=== PATIENT | male | born 1970 | race Caucasian/White ===

== ENCOUNTER → 2019-09-23 16:30 | Outpatient (BNVA) | payer OTHER, SELFPAY | PROVIDERS: Visit Provider Family Medicine | DX: Z11.59 Encounter for screening for other viral diseases (principal) | CPT/HCPCS: 87635 ==

== ENCOUNTER → 2021-11-21 15:13 | Outpatient (BNVA) | payer BC, MEDICAID, SELFPAY | PROVIDERS: Visit Provider Family Medicine | DX: Z76.89 Persons encountering health services in other specified circumstances (principal); Z11.4 Encounter for screening for human immunodeficiency virus [HIV]; Z11.59 Encounter for screening for other viral diseases; Z91.89 Other specified personal risk factors, not elsewhere classified; M25.50 Pain in unspecified joint; R63.4 Abnormal weight loss | CPT/HCPCS: 80053; 80061; 84153; 84443; 85025; 85651; 86140; 86803; 87340; 87806 ==

== ENCOUNTER → 2021-11-22 13:50 | Outpatient (BNVA) | payer BC, MEDICAID, SELFPAY | PROVIDERS: Visit Provider Family Medicine | DX: Z76.89 Persons encountering health services in other specified circumstances (principal); Z11.4 Encounter for screening for human immunodeficiency virus [HIV]; Z11.59 Encounter for screening for other viral diseases; Z91.89 Other specified personal risk factors, not elsewhere classified; M25.50 Pain in unspecified joint; R63.4 Abnormal weight loss | CPT/HCPCS: 87522 ==

== ENCOUNTER → 2021-12-13 09:06 | Outpatient (BNVA) | payer BC, MEDICAID, SELFPAY | PROVIDERS: Visit Provider Family Medicine | DX: B19.20 Unspecified viral hepatitis C without hepatic coma (principal); E11.65 Type 2 diabetes mellitus with hyperglycemia | CPT/HCPCS: 83036; 85610; 86704; 86706; 87340; 87902 ==

== ENCOUNTER 2022-03-08 06:17 | Outpatient (CLI) | payer BC, MEDICAID, SELFPAY ==
--- NOTE | 2022-03-08 06:30 | US_ITS ---
WS: [id number] RIGHT UPPER QUADRANT ULTRASOUND HISTORY: Hepatitis C infection COMPARISON: None available. Liver: 15.1 cm in length. Normal size liver with mild diffuse coarse echotexture. Surface of the live r is very slightly nodular and irregular. No mass. No bile duct dilatation. Portal Vein: Normal hepatopetal flow with monophasic waveform. Gallbladder: Mildly contracted gallbladder with wall thickening measuring just over 3 mm. No cholelit hiasis or pericholecystic fluid. CBD: 0.3 cm Pancreas: Normal. Right kidney: 10.9 cm in length. Normal size and echogenicity. No hydronephrosis or mass. Aorta and IVC: Unremarkable abdominal aorta and IVC. No ascites. US/US abdomen limited [id number] IMPRESSION: 1. Hepatic changes consistent with cirrhosis or hepatocellular disease. 2. Diffuse gallbladder wall thickening may be related to hepatocellular diseas e or partial contraction. No stones or acute cholecystitis identified. 3. No bile duct dilatation.
== END 2022-03-08 06:18 | disposition home or self-care (01) ==
LOC: RAD 06:18
PROVIDERS: PCP Family Medicine; Visit Provider Family Medicine
DX: B19.20 Unspecified viral hepatitis C without hepatic coma (principal)
CPT/HCPCS: 76705

== ENCOUNTER 2022-04-03 15:56 | Emergency (ER) | payer BC, MEDICAID, SELFPAY ==
[2022-04-03 16:22] VITALS: BP 113/79; PULSE 117; RESP 20; TEMP 37.3; O2SAT 97; BMI 21.9
[2022-04-03 17:42] LABS: Basophils # 0.1 10^3/uL (0.0-0.1); Basophils % 0.6 %; Eosinophils # 0.1 10^3/uL (0.0-0.8); Eosinophils % 0.7 %; Hematocrit 47.5 % (42.0-52.0); Hemoglobin 16.8 g/dL (11.7-16.6); Lymphocytes # 3.1 10^3/uL (0.8-4.8); Lymphocytes % 17.1 %; Mean Corpuscular HGB Conc 35.4 g/dL (30.0-36.0); Mean Corpuscular Hemoglobin 30.3 pg (28.0-34.0); Mean Corpuscular Volume 85.6 fl (80-94); Mean Platelet Volume 13.1 fL (7.4-10.4); Monocytes # 1.5 10^3/uL (0.2-0.9); Monocytes % 8.3 %; Neutrophils # 13.18 10^3/uL (1.8-7.7); Neutrophils % 72.5 %; Nucleated Red Blood Cells % 0 %; Platelet Count 201 10^3/cmm (130-400); Red Blood Count 5.55 10^6/uL (4.1-5.3); Red Cell Distribution Width 11.5 % (12.1-15.1); White Blood Count 18.2 10^3/uL (4.0-10.0)
[2022-04-03 17:43] LABS: Erythrocyte Sedimentation Rate 5 mm/hr (0-10)
[2022-04-03] MEDS: sodium chloride 0.9% 500 ML IV (17:44)
[2022-04-03 17:56] LABS: Alanine Aminotransferase 76 U/L (0-41); Albumin Level 4.1 g/dL (3.5-5.2); Alkaline Phosphatase 149 U/L (40-130); Anion Gap 15.4 (5-19); Aspartate Amino Transferase 30 U/L (0-40); Blood Urea Nitrogen 11 mg/dL (6-20); Calcium 10.2 mg/dL (8.5-10.5); Carbon Dioxide 26 mmol/L (22-29); Chloride 89 mmol/L (98-107); Creatinine Clr Calc Pharmacy 108.0854; Globulin 3.6 g/dL (1.3-4.6); Glomerular Filtration Rate 101.1 mL/min (90-130); Glucose 436 mg/dL (65-115); Osmolality Calculated 280 mOsm/kg (285-295); Potassium 4.4 mmol/L (3.5-5.1); Sodium 126 mmol/L (136-145); Total Bilirubin 0.5 mg/dL (0.15-1.2); Total Protein 7.7 g/dL (6.6-8.7)
[2022-04-03 17:57] LABS: Lactate (Lactic Acid level) 1.7 mmol/L (0.5-2.2)
--- NOTE | 2022-04-03 18:06 | ED_ITS ---
HPI - Male Genitourinary General: Chief complaint: Urogenital-Male Stated complaint: urogenital Time Seen by Provider: 04/03/22 16:50 Source: patient Mode of arrival: ambulatory Limitations: no limitations History of Present Illness: This patient was sent to the emergency department because there was concern about possible infection in his inguinal region. He states that he has had what he thought was an ingrown hair in the left inguinal crease and subsequently has had a lump that appeared in his groin and he is concerned about it. There initially was concerned whether he had fevers associated with this but he states that his temperatures never been over 99.6. He states he was sick several days ago with some abdominal cramping nausea vomiting and diarrhea but that is now improved. He states he ate a normal breakfast and lunch today without any difficulty. He denies any sore throat, cough or other potential sources of illness. No one else lives with him. He states he has been able to urinate normally. Associated symptoms: Reports nausea; Deny dysuria or vomiting Review of Systems Const: Denies: fever(s) or chills ENMT: Denies: throat pain, nasal discharge or nasal congestion Card: Denies: chest pain Resp: Denies: dyspnea, productive cough or non-productive cough GI: Reports: nausea; Denies: abdominal pain, vomiting or diarrhea : Reports: genital lesions; Denies: flank pain, difficulty urinating, dysuria, urinary frequency, penile discharge, testicular pain, testicular mass or scrotal swelling Musc: Denies: extremity pain or extremity swelling Skin/Breast: Reports: sores; Denies: rash Neuro: Denies: headache(s), numbness in extremities or weakness in extremities PFS ED 2 PFSH: Medical History Acute pharyngitis Social History Smoking and tobacco status: current every day smoker cigarettes Alcohol intake: never Lives independently: Yes Physical Exam Narrative: EXAM NARRATIVE: He appears to be alert in no acute distress. His speech is goal-directed and fluent. Const: COMMON NORMALS: no acute distress, average body habitus and patient oriented x3 GENERAL APPEARANCE: cooperative and comfortable ORIENTATION/CONSCIOUSNESS: Yes awake HENMT: COMMON NORMALS: normocephalic, Normal nasal mucous membranes and turbinates present and moist oral mucous membranes HEAD & SCALP: normocephalic NOSE: Normal nasal mucous membranes and turbinates present Eye: COMMON NORMALS: Equal, round and reactive pupils present, conjunctivae normal and no scleral icterus CONJUNCTIVA: Yes conjunctivae normal PUPIL: Yes Equal, round and reactive pupils present Neck/C-Spine: COMMON NORMALS: full ROM and no lymphadenopathy Chest: COMMONS NORMALS: normal inspection of the chest Resp: COMMON NORMALS: normal respiratory effort, No retractions, No use of accessory muscles and clear to auscultation bilaterally AUSCULTATION: clear to auscultation bilaterally Cardio: COMMON NORMALS: regular rate, regular rhythm, No murmurs present (Cardio) and Peripheral pulses 2+ throughout RATE: regular rate RHYTHM: regular rhythm PERIPHERAL PULSES: Peripheral pulses 2+ throughout GI: COMMON NORMALS: Normal to inspection, nondistended, normoactive bowel sounds present, Soft to palpation, non-tender and No hepatosplenomegaly present PALPATION: Yes Soft to palpation and Yes No hepatosplenomegaly present : COMMON NORMALS: Yes No hernias present PENIS: normal penis and circumcised SCROTUM: Yes testes descended bilaterally, Yes Cremasteric reflex present and No inguinal hernia TESTES: Yes testicular lie normal, No testicular tenderness and Yes epididymides normal OTHER: He has a swollen papule measuring approximately 5 mm x 5 mm in the skin crease inferior to his scrotum. There is no surrounding erythema. Appears to be area of folliculitis. There is no palpable fluctuance. He has proximal inguinal nodes that are slightly enlarged approximately grape size which are freely mobile and slightly tender. There is no erythema in either area. Back/Pelvis: COMMON NORMALS: thoracic and lumbar spine normal to inspection, no thoracic nor lumbar tenderness and thoraco-lumbar ROM normal Extremity: COMMON NORMALS: normal to inspection, full ROM and capillary refill normal Neuro: COMMON NORMALS: patient oriented x3, moves all extremities, no focal motor deficits and no sensory deficits noted Psych: COMMON NORMALS: mental status grossly normal Skin: COMMON NORMALS: turgor normal, no petechiae and no mottling GENERAL SKIN EXAM: turgor normal Course Reevaluation(s): Reevaluation #1: Patient remained clinically stable. Has received his antibiotics and reassessment with any new or focal findings. He is comfortable, hungry, thirsty etc. Time: 19:29 Vital Signs: Vital signs: Vital Signs Temperature 99.1 F 04/03/22 16:22 Pulse Rate 117 H 04/03/22 16:22 Respiratory Rate 20 H 04/03/22 16:22 Blood Pressure 113/79 04/03/22 16:22 Pulse Oximetry 97 04/03/22 16:22 Oxygen Delivery Me thod 04/03/22 16:22 MDM - Male Medical Decision Making This patient was referred to the emergency department from his primary care office for turns about tenderness and a lump in his left groin. This had been preceded by what in retrospect is seemingly an unrelated illness where he had some episodes of vomiting and diarrhea that has resolved. He subsequently has eaten well in the past 24 hours prior to arrival to the emergency department. My clinical examination today was very reassuring. He appeared to be quite comfortable and healthy-appearing. He did not have a elevation in temperature in the emergency department. He initially had borderline tachycardia but this resolved with the continued observation in the emergency department. His remainder of his clinical examination was only remarkable for an area of what appears to be consistent with a folliculitis in his left inguinal crease with surrounding and associated lymphadenopathy. He Apsley had no abdominal tende rness, peritoneal signs or other concerning findings on his abdominal examination. Laboratories were obtained which revealed a isolated leukocytosis without elevation in sed rate, CRP or other inflammatory markers. Patient's also had a normal lactate. No clinical evidence at this time to suggest a significant association between his preceding GI symptoms and his current presentation. I think he has findings which suggest a mild folliculitis for which we used we will start him on a first generation cephalosporin and instructed him on expected course. He voiced understanding of our discussion is stable at this time to be discharged with close follow-up and return precautions reviewed and acknowledged by the patient. Lab Data I reviewed the patient's lab results. 04/03/22 16:47 04/03/22 16:47 Laboratory Results WBC 18.2 10^3/uL (4.0-10.0) H 04/03/22 16:47 RBC 5.55 10^6/uL (4.1-5.3) H 04/03/22 16:47 Hgb 16.8 g/dL (11.7-16.6) H 04/03/22 16:47 Hct 47.5 % (42.0-52.0) 04/03/22 16:47 MCV 85.6 fl (80-94) 04/03/22 16:47 MCH 30.3 pg (28.0-34.0) 04/03/22 16:47 MCHC 35.4 g/dL (30.0-36.0) 04/03/22 16:47 RDW 11.5 % (12.1-15.1) L 04/03/22 16:47 Plt Count 201 10^3/cmm (130-400) 04/03/22 16:47 MPV 13.1 fL (7.4-10.4) H 04/03/22 16:47 Neut % (Auto) 72.5 % 04/03/22 16:47 Lymph % (Auto) 17.1 % 04/03/22 16:47 [place] % (Auto) 8.3 % 04/03/22 16:47 Eos % (Auto) 0.7 % 04/03/22 16:47 Baso % (Auto) 0.6 % 04/03/22 16:47 Neut # (Auto) 13.18 10^3/uL (1.8-7.7) H 04/03/22 16:47 Lymph # (Auto) 3.1 10^3/uL (0.8-4.8) 04/03/22 16:47 [place] # (Auto) 1.5 10^3/uL (0.2-0.9) H 04/03/22 16:47 Eos # (Auto) 0.1 10^3/uL (0.0-0.8) 04/03/22 16:47 Baso # (Auto) 0.1 10^3/uL (0.0-0.1) 04/03/22 16:47 Nucleated RBC % (auto) 0 % 04/03/22 16:47 Nucleated RBCs # 0.0 /100WBC 04/03/22 16:47 ESR 5 mm/hr (0-10) 04/03/22 16:47 Sodium 126 mmol/L (136-145) L 04/03/22 16:47 Potassium 4.4 mmol/L (3.5-5.1) 04/03/22 16:47 Chloride 89 mmol/L (98-107) L 04/03/22 16:47 Carbon Dioxide 26 mmol/L (22-29) 04/03/22 16:47 Anion Gap 15.4 (5-19) 04/03/22 16:47 BUN 11 mg/dL (6-20) 04/03/22 16:47 Creatinine 0.8 mg/dL (0.7-1.2) 04/03/22 16:47 GFR Calculation 101.1 mL/min (90-130) 04/03/22 16:47 Glucose 436 mg/dL (65-115) H 04/03/22 16:47 Calculated Osmolality 280 mOsm/kg (285-295) L 04/03/22 16:47 Lactate 1.7 mmol/L (0.5-2.2) 04/03/22 16:47 Calcium 10.2 mg/dL (8.5-10.5) 04/03/22 16:47 Total Bilirubin 0.5 mg/dL (0.15-1.2) 04/03/22 16:47 AST 30 U/L (0-40) 04/03/22 16:47 ALT 76 U/L (0-41) H 04/03/22 16:47 Alkaline Phosphatase 149 U/L (40-130) H 04/03/22 16:47 C-Reactive Protein 3.0 mg/L (0.0-4.9) 04/03/22 16:47 Total Protein 7.7 g/dL (6.6-8.7) 04/03/22 16:47 Albumin 4.1 g/dL (3.5-5.2) 04/03/22 16:47 Globulin 3.6 g/dL (1.3-4.6) 04/03/22 16:47 Discharge Plan Discharge Patient Disposition: Home Clinical Impression: Folliculitis, Inguinal adenopathy Condition: Stable Prescriptions: New cephalexin 500 mg capsule 500 mg PO Q6H 7 Days Qty: 28 0RF No Action (DME) diabetic supplies, miscellan. Misc See Rx Instructions miscellaneous .MEDSUPPLY Qty: 100 2RF Rx Instructions: Please issue Glucometer, testing supplies, pen needles for insulin pen and any other diabetic supplies. insulin glargine 100 unit/mL (3 mL) insulin pen 28 unit SUBCUT DAILY Qty: 15 4RF pantoprazole [Protonix] 40 mg tablet,delayed release (DR/EC) 40 mg PO DAILY Qty: 30 0RF ondansetron HCl 4 mg tablet 4 mg PO Q8H PRN (Reason: nausea and vomiting) Qty: 30 0RF Discharge Orders: Discharge ED (Routine); Ordered 04/03/22 Ordered By: Acosta Michelle Referrals: Harman Marcus, [Primary Care Provider] - Discharge Diet: Usual diet Discharge Activity: Increase activity as tolerated Patient Instructions: Opioid Safety, Pain Management Activity Restrictions/Additional Instructions: As discussed while you were in the emergency department we did not find any evidence today of a serious medical condition or illness. You do have an inflammation of a hair follicle in your left groin with associated lymph node tenderness and swelling. For that condition we have prescribed antibiotics as we discussed. You should take these medications as prescribed. If you develop increasing pain, fevers, or any other concerning symptoms return to this or the nearest emergency department immediately Coding Level of Care Code ED Electrical Sign Wirer for Mimi Fwd Exam Expanded Problem Focused
[2022-04-03] MEDS: ceFAZolin 1,000 MG in sodium chloride 0.9% (plus) 50 ML 100 MG IV (19:09)
[2022-04-03 19:46] VITALS: BP 131/91; PULSE 108; RESP 14; O2SAT 97
== END 2022-04-03 19:48 | disposition home or self-care (01) ==
PROVIDERS: Emergency Provider Emergency Medicine; PCP Family Medicine
DX: L73.9 Follicular disorder, unspecified (principal); R59.0 Localized enlarged lymph nodes; Z79.4 Long term (current) use of insulin; F17.210 Nicotine dependence, cigarettes, uncomplicated
CPT/HCPCS: 80053; 83605; 85025; 85651; 86140; 96365; 99284; J0690; J7040

== ENCOUNTER 2022-05-01 09:08 | Emergency (ER) | payer BC, MEDICAID, SELFPAY ==
[2022-05-01 09:17] VITALS: BP 122/90; PULSE 124; RESP 18; TEMP 36.6; O2SAT 99; BMI 21.5
--- NOTE | 2022-05-01 09:36 | XRR_ITS ---
PROCEDURE INFORMATION: Exam: XR Abdomen Exam date and time: 05/01/2022 10:05 AM Age: 51 years old Clinical indication: Constipation; Abdominal pain; Generalized; Additional info: Abdominal pain and constipation TECHNIQUE: Imaging protocol: Radiologic exam of the abdomen. Views: Frontal supine view of the abdomen. 1 View. COMPARISON: US abdomen limited [id number] 03/08/2022 6:29 AM FINDINGS: Gastrointestinal tract: There is stool distention of the ascending colon and proximal descending colon. The distal descending colon contains stool and is nondistended. The rectum is nondistended. No visibly dilated small bowel. Intraperitoneal space: No intraperitoneal free air. Bones/joints: There is mild degenerative disease in the lower lumbar spine. XR/XR KUB [id number] IMPRESSION: Intermittent stool distention of the proximal colon consistent with clinical findings of constipation.
[2022-05-01 10:00] LABS: Basophils # 0.1 10^3/uL (0.0-0.1); Basophils % 0.4 %; Hematocrit 49.1 % (42.0-52.0); Hemoglobin 17.9 g/dL (11.7-16.6); Lymphocytes # 2.2 10^3/uL (0.8-4.8); Lymphocytes % 10.3 %; Mean Corpuscular HGB Conc 36.5 g/dL (30.0-36.0); Mean Corpuscular Hemoglobin 30.5 pg (28.0-34.0); Mean Corpuscular Volume 83.6 fl (80-94); Mean Platelet Volume 11.1 fL (7.4-10.4); Monocytes # 2.2 10^3/uL (0.2-0.9); Neutrophils # 17.11 10^3/uL (1.8-7.7); Neutrophils % 78.7 %; Nucleated Red Blood Cells % 0 %; Platelet Count 237 10^3/cmm (130-400); Red Blood Count 5.87 10^6/uL (4.1-5.3); Red Cell Distribution Width 11.7 % (12.1-15.1); White Blood Count 21.7 10^3/uL (4.0-10.0)
--- NOTE | 2022-05-01 10:05 | CT_ITS ---
WS: [id number] CT ABDOMEN AND PELVIS WITH CONTRAST HISTORY: abdominal pain, vomiting, leukocytosis TECHNIQUE: Imaging performed of the abdomen and pelvis with IV contrast. Single phase imaging of the abdomen. Coronal and sagittal reformats are submitted. All CT scans at [facility] use at [address] one of these dose optimization techniques: automated exposure control; mA and/or kV adjustment per patient size (includes targeted exams where dose is matched to clinical indication); or iterative re construction. IV CONTRAST: Omnipaque 350; 100 mL IV. Oral contrast: No DLP: 439.27 mGy.cm COMPARISON: None available. Lower thorax: Lung bases are clear. Heart is normal size. Small hiatal hernia. Distal esophagus is fl uid-filled dilated. There is wall thickening and edema within the esophagus. No mass is identified. Liver/biliary system: Normal size with no intrahepatic dilatation. Gallbladder: Normal. No gallstones or wall thickening. No pericholecystic fluid. Pancreas: Normal size pancreas and pancreatic duct. No adjacent inflammation. Spleen: Normal size spleen. No mass or infarct. Adrenal glands: Normal. Right kidney: Normal. Left kidney: Normal. Aorta: Mild atherosclerosis with no aneurysm. Lymphadenopathy: None. Free fluid: None. GI tract: Stomach is markedly distended with fluid, air and a small amount of debris. Fluid extends i nto the distal esophagus. No small bowel obstruction. Moderate diffuse constipation. Normal appendix. Abdominal wall: Unremarkable abdominal wall. No hernia. Pelvis: Markedly distended urinary bladder. No free fluid or adenopathy within the pelvis. Bones: L4 anterolisthesis by 6 mm. Bilateral facet joint arthritis. Pars defect RIGHT L5 pedicle. CT/CT abdomen pelvis w con* [id number] IMPRESSION: 1. Marked thickening and inflammatory changes involving the distal esophagus w ith a large amount of intraluminal fluid. Fluid may be from gastroesophageal re flux. The distal esophageal sphincter appears patent. Inflammatory changes sugg esting esophagitis. Upper endoscopy may be necessary to further evaluate the es ophagus. 2. Marked fluid distention of the stomach. No outlet obstruction is apparent b y CT. 3. Moderate diffuse constipation. 4. No ascites or adenopathy.
[2022-05-01] MEDS: ondansetron 4 MG Tablet PO (10:13)
[2022-05-01 10:18] LABS: Alanine Aminotransferase 91 U/L (0-41); Albumin Level 4.6 g/dL (3.5-5.2); Alkaline Phosphatase 171 U/L (40-130); Aspartate Amino Transferase 44 U/L (0-40); Blood Urea Nitrogen 20 mg/dL (6-20); Calcium 10.1 mg/dL (8.5-10.5); Carbon Dioxide 30 mmol/L (22-29); Chloride 79 mmol/L (98-107); Glomerular Filtration Rate 88.3 mL/min (90-130); Lipase 13 U/L (13-60); Osmolality Calculated 293 mOsm/kg (285-295); Sodium 126 mmol/L (136-145); Total Bilirubin 1.4 mg/dL (0.15-1.2); Total Protein 7.6 g/dL (6.6-8.7)
[2022-05-01 10:22] LABS: Glucose 616 mg/dL (65-115)
--- NOTE | 2022-05-01 10:25 | PC.NURSE ---
NOTIFIED PROVIDER WILCOX OF CRITICAL BLOOD SUGAR OF 616 VERBALIZED UNDERSTANDING NO FURTHER ORDERS.
--- NOTE | 2022-05-01 10:27 | XRR_ITS ---
PROCEDURE INFORMATION: Exam: XR Chest Exam date and time: 05/01/2022 10:39 AM Age: 51 years old Clinical indication: Condition or disease; Other: Leukocytosis TECHNIQUE: Imaging protocol: Radiologic exam of the chest. Views: 2 views. COMPARISON: CR XR KUB [id number] 05/01/2022 10:05 AM FINDINGS: Lungs: Unremarkable. No consolidation. Pleural spaces: Unremarkable. No pleural effusion. No pneumothorax. Heart/Mediastinum: Unremarkable. No cardiomegaly. Bones/joints: Unremarkable. XR/XR chest 2V* [id number] IMPRESSION: No acute findings.
--- NOTE | 2022-05-01 10:40 | ECG_ITS ---
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 Measurements Intervals [place] Rate: 118 P: 62 ME: 134 QRS: 70 QRSD: 81 T: 69 QT: 304 QTc: 426 Interpretive Statements SINUS TACHYCARDIA NONSPECIFIC ST ELEVATION [0.05+ mV ST ELEVATION] ABNORMAL RHYTHM ECG No previous ECG available for comparison Electronically Signed On 05-01-2022 11:42:52 [employer] by Alonso Tran M.D. [id number]
--- NOTE | 2022-05-01 10:45 | W.ED.ABDPA2 ---
Documented by User: ANGIE Larry 05/03/22 23:30 HPI - Abdominal Pain General: Chief Complaint: Abdominal Pain Stated Complaint: constipation,vomitting Time Seen by Provider: 05/01/22 09:34 History of Present Illness: Patient is in for several days of vomiting and constipation. He reports that his last bowel movement was 4 days ago. He reports that he is vomiting all of the time in the last few days. He states that this has been a cycle happening for several months now. He reports that he was here about a month ago for knot in his left side groin and they put him on medication. He still has some knots. 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 He reports he thinks that was cancer happened some 10 years ago. He reports that he has been undergoing treatment for hepatitis C. He offers that he is diabetic takes mealtime insulin and also 24-hour insulin although he has not had that in several days because of the vomiting. He reports he has been unable to eat at all. He denies fever but has had off-and-on chills. He reports the pain in his abdomen is left upper quadrant abdomen. Associated Symptoms: Reports chills, constipation, hematemesis, nausea and vomiting; Denies dysuria and fever(s) Review of Systems Const: Reports: chills, change in appetite and fatigue; Denies: fever(s) Card: Denies: chest pain or palpitations Resp: Denies: dyspnea, productive cough or non-productive cough GI: Reports: abdominal pain, nausea, vomiting, hematemesis and constipation : Reports: other (Painful lumps left side inguinal); Denies: flank pain, difficulty urinating or dysuria PFSH ED PFSH: Medical History Acute pharyngitis Social History Smoking and tobacco status: current every day smoker cigarettes Alcohol intake: never Lives independently: Yes Physical Exam Const: COMMON NORMALS: patient oriented x3 and alert OTHER: Anxious. Poor manager of medical. Neck/C-Spine: COMMON NORMALS: full ROM, no lymphadenopathy, supple and no JVD Resp: COMMON NORMALS: normal respiratory effort, No use of accessory muscles and clear to auscultation bilaterally AUSCULTATION: clear to auscultation bilaterally Cardio: COMMON NORMALS: no JVD, regular rhythm, S1 normal heart sound present and S2 normal heart sound present RATE: tachycardic RHYTHM: regular rhythm HEART SOUNDS: S1 normal heart sound present and S2 normal heart sound present GI: COMMON NORMALS: Soft to palpation INSPECTION: Yes normal to inspection AUSCULTATION: Yes normoactive bowel sounds PALPATION: Yes Soft to palpation, Yes Tenderness to palpation present (GI) Details: RLQ and LUQ and Yes Guarding due to palpation present (GI) in the LUQ : OTHER: There is subtle left inguinal lymphadenopathy. Skin is intact no obvious lesions or abscesses appreciated. Neuro: COMMON NORMALS: patient oriented x3 SENSORIUM/ORIENTATION: Yes alert Psych: MOOD & AFFECT: Yes anxious Course ED course: 1045?patient's blood sugar was called is critical from lab for results of 616. Added on EKG, troponin, ketones, ABG. I discussed patient's lab results and EKG with Dr. Garcia. Dr. Garcia recommends 2 L IV fluid then treat with 10 units IV insulin. May repeat 2 L IV fluid after. 1235?fluids completed. Will administer 10 units IV insulin x1 dose. Repeat blood glucose is 506. I discussed this with Dr. Garcia. Ketones serum were negative. We will recheck blood glucose in 1 hour. Plan for discharge once patient's blood glucose is below 300 1545?patient starting to vomit again after taking oral liquids. Another liter of IV fluids ordered. Benadryl to help with nausea. We will continue to monitor Vital Signs: Vital signs: Vital Signs Temperature 97.9 F 05/01/22 09:17 Pulse Rate 98 05/01/22 18:43 Respiratory Rate 18 05/01/22 11:11 Blood Pressure 136/82 05/01/22 18:43 Pulse Oximetry 98 05/01/22 18:43 Oxygen Delivery Me thod 05/01/22 15:40 MDM - Abdominal Pain Medical Decision Making The patient is in for general nausea, vomiting and ill feeling. He is an uncontrolled diabetic patient who is also receiving treatment for hepatitis C. The patient was recently seen to for what he reports was tumors in his groin. Looking back at the ER record it appears that he was seen and diagnosed with folliculitis of his inguinal region on the left side. It appears there was lymphadenopathy appreciated on that exam. Patient states now for 3 days he has been having vomiting and it worsened significantly last night. He denies fever but has had some chills. He has not been taking his insulin because he has not been able to keep much food down. Labs reveal significant dehydration and hyperglycemia. Anion gap was 21 negative serum ketones. UA dip and chest x-ray negative for signs of infection. CT abdomen and pelvis shows thickening and inflammatory changes of the distal esophagus suggestive of esophagitis. Patient was rehydrated with IV fluids and 10 units of insulin was administered after the fluids as patient's blood sugar was 616. An hour after insulin was administered the patient's blood sugar was down to 256. Patient's white blood cell count is 21.7 which is up from previous ER visit at 18. This is likely related to severity of dehydration. I do not see any evidence of acute bacterial infection at this time. I reviewed labs, case, EKG with Dr. Garcia. He recommends patient be discharged home with short-term follow-up with primary care provider. Return to the ER as needed for new or worsening symptoms. The plan was originally to do this however patient is still vomiting and unable to hold p.o. liquids down. Continued with IV hydration and further antiemetics. Care was transitioned to Ariana Post PA-C as my shift is ending. Transfer of patient care from [facility], [facility] to myself, Ariana Post PA-C. Patient has been treated with Benadryl and Zofran for his nausea. Prescription for continued treatment with Zofran provided. Patient also indicates concerns for constipation as he has had decreased stool output over the last 3 days. MiraLAX also provided. All the patient's lab work was reviewed by Dr. Garcia who recommended discharge for this patient at this time. Patient was given return precautions for any change or worsening in condition. Lab Data 05/01/22 09:49 05/01/22 09:49 Labs/Radiology: Radiology Impressions KUB X-Ray 05/01/22 09:36 IMPRESSION: Intermittent stool distention of the proximal colon consistent with clinical findings of constipation. Abdomen/Pelvis CT 05/01/22 10:05 IMPRESSION: 1. Marked thickening and inflammatory changes involving the distal esophagus with a large amount of intraluminal fluid. Fluid may be from gastroesophageal reflux. The distal esophageal sphincter appears patent. Inflammatory changes suggesting esophagitis. Upper endoscopy may be necessary to further evaluate the esophagus. 2. Marked fluid distention of the stomach. No outlet obstruction is apparent by CT. 3. Moderate diffuse constipation. 4. No ascites or adenopathy. Chest X-Ray 05/01/22 10:27 IMPRESSION: No acute findings. Laboratory Results WBC 21.7 10^3/uL (4.0-10.0) H 05/01/22 09:49 RBC 5.87 10^6/uL (4.1-5.3) H 05/01/22 09:49 Hgb 17.9 g/dL (11.7-16.6) H 05/01/22 09:49 Hct 49.1 % (42.0-52.0) 05/01/22 09:49 MCV 83.6 fl (80-94) 05/01/22 09:49 MCH 30.5 pg (28.0-34.0) 05/01/22 09:49 MCHC 36.5 g/dL (30.0-36.0) H 05/01/22 09:49 RDW 11.7 % (12.1-15.1) L 05/01/22 09:49 Plt Count 237 10^3/cmm (130-400) 05/01/22 09:49 MPV 11.1 fL (7.4-10.4) H 05/01/22 09:49 Neut % (Auto) 78.7 % 05/01/22 09:49 Lymph % (Auto) 10.3 % 05/01/22 09:49 [place] % (Auto) 10.0 % 05/01/22 09:49 Eos % (Auto) 0.0 % 05/01/22 09:49 Baso % (Auto) 0.4 % 05/01/22 09:49 Neut # (Auto) 17.11 10^3/uL (1.8-7.7) H 05/01/22 09:49 Lymph # (Auto) 2.2 10^3/uL (0.8-4.8) 05/01/22 09:49 [place] # (Auto) 2.2 10^3/uL (0.2-0.9) H 05/01/22 09:49 Eos # (Auto) 0.0 10^3/uL (0.0-0.8) 05/01/22 09:49 Baso # (Auto) 0.1 10^3/uL (0.0-0.1) 05/01/22 09:49 Nucleated RBC % (auto) 0 % 05/01/22 09:49 Nucleated RBCs # 0.0 /100WBC 05/01/22 09:49 Specimen Type Arterial 05/01/22 11:15 Sample Site Radial, left 05/01/22 11:15 ABG pH 7.53 (7.35-7.45) H 05/01/22 11:15 ABG pCO2 37.5 mmHg (35-45) 05/01/22 11:15 ABG pO2 83.9 mmHg (80.0-100.0) 05/01/22 11:15 ABG HCO3 31.5 mmol/L (22-26) H 05/01/22 11:15 ABG O2 Saturation 97.8 05/01/22 11:15 ABG Base Excess 8.4 mmol/L (-2.0-2.0) H 05/01/22 11:15 [place] Test Pos 05/01/22 11:15 A-a O2 Gradient 2.2 mmHg (5-10) L 05/01/22 11:15 Hematocrit 49.6 % (42-52) 05/01/22 11:15 Hgb O2 Saturation 94.5 % (95-100) L 05/01/22 11:15 Carboxyhemoglobin 3.2 %THgb (0.4-20.1) 05/01/22 11:15 Methemoglobin 0.2 % (0.4-1.5) L 05/01/22 11:15 Total Hemoglobin 16.2 g/dL (14-18) 05/01/22 11:15 Sodium 125.0 mmol/L (131-143) L 05/01/22 11:15 Potassium 3.1 mmol/L (3.5-5.0) L 05/01/22 11:15 Glucose 549.0 mg/dL (70-115) H 05/01/22 11:15 Ionized Calcium 1.1 mmol/L (1.1-1.4) 05/01/22 11:15 O2 Delivery Device None 05/01/22 11:15 Technical Project Manager ID [email or web address] 05/01/22 11:15 Sodium 130 mmol/L (136-145) L 05/01/22 16:06 Potassium 3.4 mmol/L (3.5-5.1) L 05/01/22 16:06 Chloride 91 mmol/L (98-107) L 05/01/22 16:06 Carbon Dioxide 26 mmol/L (22-29) 05/01/22 16:06 Anion Gap 16.4 (5-19) 05/01/22 16:06 BUN 18 mg/dL (6-20) 05/01/22 16:06 Creatinine 0.6 mg/dL (0.7-1.2) L 05/01/22 16:06 GFR Calculation 140.9 mL/min (90-130) H 05/01/22 16:06 Glucose 323 mg/dL (65-115) H 05/01/22 16:06 POC Glucose 285 mg/dL (70-110) H 05/01/22 18:01 Calculated Osmolality 284 mOsm/kg (285-295) L 05/01/22 16:06 Lactic Acid 3.6 mmol/L (0.5-2.2) H 05/01/22 09:49 Lactic Acid (Sepsis) 4.1 mmol/L (0.5-2.2) H* 05/01/22 13:41 Calcium 9.0 mg/dL (8.5-10.5) 05/01/22 16:06 Phosphorus 5.1 mg/dL (2.5-4.5) H 05/01/22 09:49 Magnesium 2.3 mg/dL (1.7-2.3) 05/01/22 09:49 Total Bilirubin 1.2 mg/dL (0.15-1.2) 05/01/22 16:06 AST 31 U/L (0-40) 05/01/22 16:06 ALT 63 U/L (0-41) H 05/01/22 16:06 Alkaline Phosphatase 140 U/L (40-130) H 05/01/22 16:06 Troponin T Baseline 15 ng/L (0-15) 05/01/22 13:41 Troponin T 120 Minute 15.02 ng/L (0-15) H 05/01/22 15:50 Delta Troponin T 0.02 ABS# (0-10) 05/01/22 15:50 Total Protein 6.1 g/dL (6.6-8.7) L 05/01/22 16:06 Albumin 3.6 g/dL (3.5-5.2) 05/01/22 16:06 Globulin 2.5 g/dL (1.3-4.6) 05/01/22 16:06 Lipase 13 U/L (13-60) 05/01/22 09:49 Urine Color Dark yellow (Yellow) 05/01/22 14:46 Urine Appearance Clear (CLEAR) 05/01/22 14:46 Urine pH 6.5 (5-7) 05/01/22 14:46 Ur Specific [place] 1.010 (1.005-1.030) 05/01/22 14:46 Urine Protein Neg (Negative) 05/01/22 14:46 Urine Glucose (UA) 4+ (Normal) H 05/01/22 14:46 Urine Ketones 1+ (Negative) H 05/01/22 14:46 Urine Blood Neg (Negative) 05/01/22 14:46 Urine Nitrate Negative (Negative) 05/01/22 14:46 Urine Bilirubin Neg (Negative) 05/01/22 14:46 Urine Urobilinogen Norm mg/dL (Negative) 05/01/22 14:46 Ur Leukocyte Esterase Negative (Negative) 05/01/22 14:46 Serum Ketones Negative (Negative) 05/01/22 09:49 Discharge Plan Discharge Patient Disposition: Home Clinical Impression: Diabetes mellitus type 2, uncontrolled, with complications, Vomiting, Elevated blood sugar level Condition: Stable Prescriptions: New ondansetron 4 mg tablet,disintegrating 4 mg PO Q8H 5 Days Qty: 15 0RF Miralax 17 gram/dose powder 17 g PO DAILY Qty: 238 0RF No Action (DME) diabetic supplies, miscellan. Misc See Rx Instructions miscellaneous .MEDSUPPLY Qty: 100 2RF Rx Instructions: Please issue Glucometer, testing supplies, pen needles for insulin pen and any other diabetic supplies. pantoprazole [Protonix] 40 mg tablet,delayed release (DR/EC) 40 mg PO DAILY Qty: 30 0RF buspirone 5 mg tablet 5 mg PO BID PRN (Reason: anxiety) Qty: 60 2RF Lantus Solostar U-100 Insulin 100 unit/mL (3 mL) insulin pen 12 - 16 unit SUBCUT DAILY PRN (Reason: blood sugar) Pepto-Bismol 262 mg/15 mL Suspension 524 mg PO .ONCE Tums 200 mg calcium (500 mg) Tablet,Chewable 200 - 600 mg PO TID PRN (Reason: unknown) Maalox 200-200-20 mg/5 mL Suspension 10 ml PO BID PRN (Reason: unknown) oxycodone 5 mg Tablet 5 mg PO .ONCE Mavyret 100-40 mg Tablet 3 tab PO DAILY Rx Instructions: must administer with a meal/food Discharge Orders: Discharge ED (Routine); Ordered 05/01/22 Ordered By: Ariana Post Referrals: Harman Marcus DO [Primary Care Provider] - Patient Instructions: Acute Nausea and Vomiting (DC), Diabetic Hyperglycemia (ED) Coding Level of Care Code ED Furniture Removalist'S Assistant for Chg Fwd Documented by User: [email or web address] Le 05/01/22 20:38 HPI - Abdominal Pain General: Chief Complaint: Abdominal Pain Stated Complaint: constipation,vomitting Time Seen by Provider: 05/01/22 09:34 [facility] ED PFSH: Medical History Acute pharyngitis Social History Smoking and tobacco status: current every day smoker cigarettes Alcohol intake: never Lives independently: Yes Course Vital Signs: Vital signs: Vital Signs Temperature 97.9 F 05/01/22 09:17 Pulse Rate 98 05/01/22 18:43 Respiratory Rate 18 05/01/22 11:11 Blood Pressure 136/82 05/01/22 18:43 Pulse Oximetry 98 05/01/22 18:43 Oxygen Delivery Ca thod 05/01/22 15:40 MDM - Abdominal Pain Medical Decision Making The patient is in for general nausea, vomiting and ill feeling. He is an uncontrolled diabetic patient who is also receiving treatment for hepatitis C. The patient was recently seen to for what he reports was tumors in his groin. Looking back at the ER record it appears that he was seen and diagnosed with folliculitis of his inguinal region on the left side. It appears there was lymphadenopathy appreciated on that exam. Patient states now for 3 days he has been having vomiting and it worsened significantly last night. He denies fever but has had some chills. He has not been taking his insulin because he has not been able to keep much food down. Labs reveal significant dehydration and hyperglycemia. Anion gap was 21 negative serum ketones. UA dip and chest x-ray negative for signs of infection. CT abdomen and pelvis shows thickening and inflammatory changes of the distal esophagus suggestive of esophagitis. Patient was rehydrated with IV fluids and 10 units of insulin was administered after the fluids as patient's blood sugar was 616. An hour after insulin was administered the patient's blood sugar was down to 256. Patient's white blood cell count is 21.7 which is up from previous ER visit at 18. This is likely related to severity of dehydration. I do not see any evidence of acute bacterial infection at this time. I reviewed labs, case, EKG with Dr. Garcia. He recommends patient be discharged home with short-term follow-up with primary care provider. Return to the ER as needed for new or worsening symptoms. Transfer of patient care from [facility], [facility] to myself, Ariana Post PA-C. Patient has been treated with Benadryl and Zofran for his nausea. Prescription for continued treatment with Zofran provided. Patient also indicates concerns for constipation as he has had decreased stool output over the last 3 days. MiraLAX also provided. All the patient's lab work was reviewed by Dr. Garcia who recommended discharge for this patient at this time. Patient was given return precautions for any change or worsening in condition. Differential Diagnosis Likely abdominal pain, acute appendicitis, calculus of kidney, constipation, diverticulitis, gastroenteritis and pancreatitis (DKA) Lab Data 05/01/22 09:49 05/01/22 09:49 Labs/Radiology: Radiology Impressions KUB X-Ray 05/01/22 09:36 IMPRESSION: Intermittent stool distention of the proximal colon consistent with clinical findings of constipation. Abdomen/Pelvis CT 05/01/22 10:05 IMPRESSION: 1. Marked thickening and inflammatory changes involving the distal esophagus with a large amount of intraluminal fluid. Fluid may be from gastroesophageal reflux. The distal esophageal sphincter appears patent. Inflammatory changes suggesting esophagitis. Upper endoscopy may be necessary to further evaluate the esophagus. 2. Marked fluid distention of the stomach. No outlet obstruction is apparent by CT. 3. Moderate diffuse constipation. 4. No ascites or adenopathy. Chest X-Ray 05/01/22 10:27 IMPRESSION: No acute findings. Laboratory Results WBC 21.7 10^3/uL (4.0-10.0) H 05/01/22 09:49 RBC 5.87 10^6/uL (4.1-5.3) H 05/01/22 09:49 Hgb 17.9 g/dL (11.7-16.6) H 05/01/22 09:49 Hct 49.1 % (42.0-52.0) 05/01/22 09:49 MCV 83.6 fl (80-94) 05/01/22 09:49 MCH 30.5 pg (28.0-34.0) 05/01/22 09:49 MCHC 36.5 g/dL (30.0-36.0) H 05/01/22 09:49 RDW 11.7 % (12.1-15.1) L 05/01/22 09:49 Plt Count 237 10^3/cmm (130-400) 05/01/22 09:49 MPV 11.1 fL (7.4-10.4) H 05/01/22 09:49 Neut % (Auto) 78.7 % 05/01/22 09:49 Lymph % (Auto) 10.3 % 05/01/22 09:49 [place] % (Auto) 10.0 % 05/01/22 09:49 Eos % (Auto) 0.0 % 05/01/22 09:49 Baso % (Auto) 0.4 % 05/01/22 09:49 Neut # (Auto) 17.11 10^3/uL (1.8-7.7) H 05/01/22 09:49 Lymph # (Auto) 2.2 10^3/uL (0.8-4.8) 05/01/22 09:49 [place] # (Auto) 2.2 10^3/uL (0.2-0.9) H 05/01/22 09:49 Eos # (Auto) 0.0 10^3/uL (0.0-0.8) 05/01/22 09:49 Baso # (Auto) 0.1 10^3/uL (0.0-0.1) 05/01/22 09:49 Nucleated RBC % (auto) 0 % 05/01/22 09:49 Nucleated RBCs # 0.0 /100WBC 05/01/22 09:49 Specimen Type Arterial 05/01/22 11:15 Sample Site Radial, left 05/01/22 11:15 ABG pH 7.53 (7.35-7.45) H 05/01/22 11:15 ABG pCO2 37.5 mmHg (35-45) 05/01/22 11:15 ABG pO2 83.9 mmHg (80.0-100.0) 05/01/22 11:15 ABG HCO3 31.5 mmol/L (22-26) H 05/01/22 11:15 ABG O2 Saturation 97.8 05/01/22 11:15 ABG Base Excess 8.4 mmol/L (-2.0-2.0) H 05/01/22 11:15 [place] Test Pos 05/01/22 11:15 A-a O2 Gradient 2.2 mmHg (5-10) L 05/01/22 11:15 Hematocrit 49.6 % (42-52) 05/01/22 11:15 Hgb O2 Saturation 94.5 % (95-100) L 05/01/22 11:15 Carboxyhemoglobin 3.2 %THgb (0.4-20.1) 05/01/22 11:15 Methemoglobin 0.2 % (0.4-1.5) L 05/01/22 11:15 Total Hemoglobin 16.2 g/dL (14-18) 05/01/22 11:15 Sodium 125.0 mmol/L (131-143) L 05/01/22 11:15 Potassium 3.1 mmol/L (3.5-5.0) L 05/01/22 11:15 Glucose 549.0 mg/dL (70-115) H 05/01/22 11:15 Ionized Calcium 1.1 mmol/L (1.1-1.4) 05/01/22 11:15 O2 Delivery Device None 05/01/22 11:15 Technical Project Manager ID [email or web address] 05/01/22 11:15 Sodium 130 mmol/L (136-145) L 05/01/22 16:06 Potassium 3.4 mmol/L (3.5-5.1) L 05/01/22 16:06 Chloride 91 mmol/L (98-107) L 05/01/22 16:06 Carbon Dioxide 26 mmol/L (22-29) 05/01/22 16:06 Anion Gap 16.4 (5-19) 05/01/22 16:06 BUN 18 mg/dL (6-20) 05/01/22 16:06 Creatinine 0.6 mg/dL (0.7-1.2) L 05/01/22 16:06 GFR Calculation 140.9 mL/min (90-130) H 05/01/22 16:06 Glucose 323 mg/dL (65-115) H 05/01/22 16:06 POC Glucose 285 mg/dL (70-110) H 05/01/22 18:01 Calculated Osmolality 284 mOsm/kg (285-295) L 05/01/22 16:06 Lactic Acid 3.6 mmol/L (0.5-2.2) H 05/01/22 09:49 Lactic Acid (Sepsis) 4.1 mmol/L (0.5-2.2) H* 05/01/22 13:41 Calcium 9.0 mg/dL (8.5-10.5) 05/01/22 16:06 Phosphorus 5.1 mg/dL (2.5-4.5) H 05/01/22 09:49 Magnesium 2.3 mg/dL (1.7-2.3) 05/01/22 09:49 Total Bilirubin 1.2 mg/dL (0.15-1.2) 05/01/22 16:06 AST 31 U/L (0-40) 05/01/22 16:06 ALT 63 U/L (0-41) H 05/01/22 16:06 Alkaline Phosphatase 140 U/L (40-130) H 05/01/22 16:06 Troponin T Baseline 15 ng/L (0-15) 05/01/22 13:41 Troponin T 120 Minute 15.02 ng/L (0-15) H 05/01/22 15:50 Delta Troponin T 0.02 ABS# (0-10) 05/01/22 15:50 Total Protein 6.1 g/dL (6.6-8.7) L 05/01/22 16:06 Albumin 3.6 g/dL (3.5-5.2) 05/01/22 16:06 Globulin 2.5 g/dL (1.3-4.6) 05/01/22 16:06 Lipase 13 U/L (13-60) 05/01/22 09:49 Urine Color Dark yellow (Yellow) 05/01/22 14:46 Urine Appearance Clear (CLEAR) 05/01/22 14:46 Urine pH 6.5 (5-7) 05/01/22 14:46 Ur Specific [place] 1.010 (1.005-1.030) 05/01/22 14:46 Urine Protein Neg (Negative) 05/01/22 14:46 Urine Glucose (UA) 4+ (Normal) H 05/01/22 14:46 Urine Ketones 1+ (Negative) H 05/01/22 14:46 Urine Blood Neg (Negative) 05/01/22 14:46 Urine Nitrate Negative (Negative) 05/01/22 14:46 Urine Bilirubin Neg (Negative) 05/01/22 14:46 Urine Urobilinogen Norm mg/dL (Negative) 05/01/22 14:46 Ur Leukocyte Esterase Negative (Negative) 05/01/22 14:46 Serum Ketones Negative (Negative) 05/01/22 09:49 Discharge Plan Discharge Patient Disposition: Home Clinical Impression: Diabetes mellitus type 2, uncontrolled, with complications, Vomiting, Elevated blood sugar level Condition: Stable Prescriptions: New ondansetron 4 mg tablet,disintegrating 4 mg PO Q8H 5 Days Qty: 15 0RF Miralax 17 gram/dose powder 17 g PO DAILY Qty: 238 0RF No Action (DME) diabetic supplies, miscellan. Misc See Rx Instructions miscellaneous .MEDSUPPLY Qty: 100 2RF Rx Instructions: Please issue Glucometer, testing supplies, pen needles for insulin pen and any other diabetic supplies. pantoprazole [Protonix] 40 mg tablet,delayed release (DR/EC) 40 mg PO DAILY Qty: 30 0RF buspirone 5 mg tablet 5 mg PO BID PRN (Reason: anxiety) Qty: 60 2RF Lantus Solostar U-100 Insulin 100 unit/mL (3 mL) insulin pen 12 - 16 unit SUBCUT DAILY PRN (Reason: blood sugar) Pepto-Bismol 262 mg/15 mL Suspension 524 mg PO .ONCE Tums 200 mg calcium (500 mg) Tablet,Chewable 200 - 600 mg PO TID PRN (Reason: unknown) Maalox 200-200-20 mg/5 mL Suspension 10 ml PO BID PRN (Reason: unknown) oxycodone 5 mg Tablet 5 mg PO .ONCE Mavyret 100-40 mg Tablet 3 tab PO DAILY Rx Instructions: must administer with a meal/food Discharge Orders: Discharge ED (Routine); Ordered 05/01/22 Ordered By: Ariana Post Referrals: Harman Marcus DO [Primary Care Provider] - Patient Instructions: Acute Nausea and Vomiting (DC), Diabetic Hyperglycemia (ED) Coding Level of Care Code ED Furniture Removalist'S Assistant for Chg Fwd Documented by User: Zack Garcia DO 05/04/22 06:13 HPI - Abdominal Pain General: Chief Complaint: Abdominal Pain Stated Complaint: constipation,vomitting Time Seen by Provider: 05/01/22 09:34 [facility] ED PFSH: Medical History Acute pharyngitis Social History Smoking and tobacco status: current every day smoker cigarettes Alcohol intake: never Lives independently: Yes Course Vital Signs: Vital signs: Vital Signs Temperature 97.9 F 05/01/22 09:17 Pulse Rate 98 05/01/22 18:43 Respiratory Rate 18 05/01/22 11:11 Blood Pressure 136/82 05/01/22 18:43 Pulse Oximetry 98 05/01/22 18:43 Oxygen Delivery Me thod 05/01/22 15:40 MDM - Abdominal Pain Medical Decision Making The patient is in for general nausea, vomiting and ill feeling. He is an uncontrolled diabetic patient who is also receiving treatment for hepatitis C. The patient was recently seen to for what he reports was tumors in his groin. Looking back at the ER record it appears that he was seen and diagnosed with folliculitis of his inguinal region on the left side. It appears there was lymphadenopathy appreciated on that exam. Patient states now for 3 days he has been having vomiting and it worsened significantly last night. He denies fever but has had some chills. He has not been taking his insulin because he has not been able to keep much food down. Labs reveal significant dehydration and hyperglycemia. Anion gap was 21 negative serum ketones. UA dip and chest x-ray negative for signs of infection. CT abdomen and pelvis shows thickening and inflammatory changes of the distal esophagus suggestive of esophagitis. Patient was rehydrated with IV fluids and 10 units of insulin was administered after the fluids as patient's blood sugar was 616. An hour after insulin was administered the patient's blood sugar was down to 256. Patient's white blood cell count is 21.7 which is up from previous ER visit at 18. This is likely related to severity of dehydration. I do not see any evidence of acute bacterial infection at this time. I reviewed labs, case, EKG with Dr. Garcia. He recommends patient be discharged home with short-term follow-up with primary care provider. Return to the ER as needed for new or worsening symptoms. The plan was originally to do this however patient is still vomiting and unable to hold p.o. liquids down. Continued with IV hydration and further antiemetics. Care was transitioned to Ariana Post PA-C as my shift is ending. Transfer of patient care from [facility], [facility] to myself, Ariana Post PA-C. Patient has been treated with Benadryl and Zofran for his nausea. Prescription for continued treatment with Zofran provided. Patient also indicates concerns for constipation as he has had decreased stool output over the last 3 days. MiraLAX also provided. All the patient's lab work was reviewed by Dr. Garcia who recommended discharge for this patient at this time. Patient was given return precautions for any change or worsening in condition. Chart reviewed and patient discussed with midlevel. Agree with assessment and plan. Lab Data 05/01/22 09:49 05/01/22 09:49 Labs/Radiology: Radiology Impressions KUB X-Ray 05/01/22 09:36 IMPRESSION: Intermittent stool distention of the proximal colon consistent with clinical findings of constipation. Abdomen/Pelvis CT 05/01/22 10:05 IMPRESSION: 1. Marked thickening and inflammatory changes involving the distal esophagus with a large amount of intraluminal fluid. Fluid may be from gastroesophageal reflux. The distal esophageal sphincter appears patent. Inflammatory changes suggesting esophagitis. Upper endoscopy may be necessary to further evaluate the esophagus. 2. Marked fluid distention of the stomach. No outlet obstruction is apparent by CT. 3. Moderate diffuse constipation. 4. No ascites or adenopathy. Chest X-Ray 05/01/22 10:27 IMPRESSION: No acute findings. Laboratory Results WBC 21.7 10^3/uL (4.0-10.0) H 05/01/22 09:49 RBC 5.87 10^6/uL (4.1-5.3) H 05/01/22 09:49 Hgb 17.9 g/dL (11.7-16.6) H 05/01/22 09:49 Hct 49.1 % (42.0-52.0) 05/01/22 09:49 MCV 83.6 fl (80-94) 05/01/22 09:49 MCH 30.5 pg (28.0-34.0) 05/01/22 09:49 MCHC 36.5 g/dL (30.0-36.0) H 05/01/22 09:49 RDW 11.7 % (12.1-15.1) L 05/01/22 09:49 Plt Count 237 10^3/cmm (130-400) 05/01/22 09:49 MPV 11.1 fL (7.4-10.4) H 05/01/22 09:49 Neut % (Auto) 78.7 % 05/01/22 09:49 Lymph % (Auto) 10.3 % 05/01/22 09:49 [place] % (Auto) 10.0 % 05/01/22 09:49 Eos % (Auto) 0.0 % 05/01/22 09:49 Baso % (Auto) 0.4 % 05/01/22 09:49 Neut # (Auto) 17.11 10^3/uL (1.8-7.7) H 05/01/22 09:49 Lymph # (Auto) 2.2 10^3/uL (0.8-4.8) 05/01/22 09:49 [place] # (Auto) 2.2 10^3/uL (0.2-0.9) H 05/01/22 09:49 Eos # (Auto) 0.0 10^3/uL (0.0-0.8) 05/01/22 09:49 Baso # (Auto) 0.1 10^3/uL (0.0-0.1) 05/01/22 09:49 Nucleated RBC % (auto) 0 % 05/01/22 09:49 Nucleated RBCs # 0.0 /100WBC 05/01/22 09:49 Specimen Type Arterial 05/01/22 11:15 Sample Site Radial, left 05/01/22 11:15 ABG pH 7.53 (7.35-7.45) H 05/01/22 11:15 ABG pCO2 37.5 mmHg (35-45) 05/01/22 11:15 ABG pO2 83.9 mmHg (80.0-100.0) 05/01/22 11:15 ABG HCO3 31.5 mmol/L (22-26) H 05/01/22 11:15 ABG O2 Saturation 97.8 05/01/22 11:15 ABG Base Excess 8.4 mmol/L (-2.0-2.0) H 05/01/22 11:15 [place] Test Pos 05/01/22 11:15 A-a O2 Gradient 2.2 mmHg (5-10) L 05/01/22 11:15 Hematocrit 49.6 % (42-52) 05/01/22 11:15 Hgb O2 Saturation 94.5 % (95-100) L 05/01/22 11:15 Carboxyhemoglobin 3.2 %THgb (0.4-20.1) 05/01/22 11:15 Methemoglobin 0.2 % (0.4-1.5) L 05/01/22 11:15 Total Hemoglobin 16.2 g/dL (14-18) 05/01/22 11:15 Sodium 125.0 mmol/L (131-143) L 05/01/22 11:15 Potassium 3.1 mmol/L (3.5-5.0) L 05/01/22 11:15 Glucose 549.0 mg/dL (70-115) H 05/01/22 11:15 Ionized Calcium 1.1 mmol/L (1.1-1.4) 05/01/22 11:15 O2 Delivery Device None 05/01/22 11:15 Technical Project Manager ID [email or web address] 05/01/22 11:15 Sodium 130 mmol/L (136-145) L 05/01/22 16:06 Potassium 3.4 mmol/L (3.5-5.1) L 05/01/22 16:06 Chloride 91 mmol/L (98-107) L 05/01/22 16:06 Carbon Dioxide 26 mmol/L (22-29) 05/01/22 16:06 Anion Gap 16.4 (5-19) 05/01/22 16:06 BUN 18 mg/dL (6-20) 05/01/22 16:06 Creatinine 0.6 mg/dL (0.7-1.2) L 05/01/22 16:06 GFR Calculation 140.9 mL/min (90-130) H 05/01/22 16:06 Glucose 323 mg/dL (65-115) H 05/01/22 16:06 POC Glucose 285 mg/dL (70-110) H 05/01/22 18:01 Calculated Osmolality 284 mOsm/kg (285-295) L 05/01/22 16:06 Lactic Acid 3.6 mmol/L (0.5-2.2) H 05/01/22 09:49 Lactic Acid (Sepsis) 4.1 mmol/L (0.5-2.2) H* 05/01/22 13:41 Calcium 9.0 mg/dL (8.5-10.5) 05/01/22 16:06 Phosphorus 5.1 mg/dL (2.5-4.5) H 05/01/22 09:49 Magnesium 2.3 mg/dL (1.7-2.3) 05/01/22 09:49 Total Bilirubin 1.2 mg/dL (0.15-1.2) 05/01/22 16:06 AST 31 U/L (0-40) 05/01/22 16:06 ALT 63 U/L (0-41) H 05/01/22 16:06 Alkaline Phosphatase 140 U/L (40-130) H 05/01/22 16:06 Troponin T Baseline 15 ng/L (0-15) 05/01/22 13:41 Troponin T 120 Minute 15.02 ng/L (0-15) H 05/01/22 15:50 Delta Troponin T 0.02 ABS# (0-10) 05/01/22 15:50 Total Protein 6.1 g/dL (6.6-8.7) L 05/01/22 16:06 Albumin 3.6 g/dL (3.5-5.2) 05/01/22 16:06 Globulin 2.5 g/dL (1.3-4.6) 05/01/22 16:06 Lipase 13 U/L (13-60) 05/01/22 09:49 Urine Color Dark yellow (Yellow) 05/01/22 14:46 Urine Appearance Clear (CLEAR) 05/01/22 14:46 Urine pH 6.5 (5-7) 05/01/22 14:46 Ur Specific [place] 1.010 (1.005-1.030) 05/01/22 14:46 Urine Protein Neg (Negative) 05/01/22 14:46 Urine Glucose (UA) 4+ (Normal) H 05/01/22 14:46 Urine Ketones 1+ (Negative) H 05/01/22 14:46 Urine Blood Neg (Negative) 05/01/22 14:46 Urine Nitrate Negative (Negative) 05/01/22 14:46 Urine Bilirubin Neg (Negative) 05/01/22 14:46 Urine Urobilinogen Norm mg/dL (Negative) 05/01/22 14:46 Ur Leukocyte Esterase Negative (Negative) 05/01/22 14:46 Serum Ketones Negative (Negative) 05/01/22 09:49 Discharge Plan Discharge Patient Disposition: Home Clinical Impression: Diabetes mellitus type 2, uncontrolled, with complications, Vomiting, Elevated blood sugar level Condition: Stable Prescriptions: New ondansetron 4 mg tablet,disintegrating 4 mg PO Q8H 5 Days Qty: 15 0RF Miralax 17 gram/dose powder 17 g PO DAILY Qty: 238 0RF No Action (DME) diabetic supplies, miscellan. Misc See Rx Instructions miscellaneous .MEDSUPPLY Qty: 100 2RF Rx Instructions: Please issue Glucometer, testing supplies, pen needles for insulin pen and any other diabetic supplies. pantoprazole [Protonix] 40 mg tablet,delayed release (DR/EC) 40 mg PO DAILY Qty: 30 0RF buspirone 5 mg tablet 5 mg PO BID PRN (Reason: anxiety) Qty: 60 2RF Lantus Solostar U-100 Insulin 100 unit/mL (3 mL) insulin pen 12 - 16 unit SUBCUT DAILY PRN (Reason: blood sugar) Pepto-Bismol 262 mg/15 mL Suspension 524 mg PO .ONCE Tums 200 mg calcium (500 mg) Tablet,Chewable 200 - 600 mg PO TID PRN (Reason: unknown) Maalox 200-200-20 mg/5 mL Suspension 10 ml PO BID PRN (Reason: unknown) oxycodone 5 mg Tablet 5 mg PO .ONCE Mavyret 100-40 mg Tablet 3 tab PO DAILY Rx Instructions: must administer with a meal/food Discharge Orders: Discharge ED (Routine); Ordered 05/01/22 Ordered By: Ariana Post Referrals: Harman Marcus DO [Primary Care Provider] - Patient Instructions: Acute Nausea and Vomiting (DC), Diabetic Hyperglycemia (ED) Coding Level of Care Code ED Furniture Removalist'S Assistant for Mimi Brown
[2022-05-01 11:05] LABS: Magnesium 2.3 mg/dL (1.7-2.3); Phosphorus 5.1 mg/dL (2.5-4.5)
[2022-05-01 11:11] VITALS: BP 148/101; PULSE 114; RESP 18; O2SAT 99
[2022-05-01] MEDS: sodium chloride 0.9% 1,000 ML 999 ML IV ×3 (11:11→15:59)
[2022-05-01 11:13] LABS: Ketone (Acetest) Serum Negative (Negative)
[2022-05-01 11:14] LABS: Lactic Sepsis W/Reflex 3.6 mmol/L (0.5-2.2)
[2022-05-01] MEDS: ondansetron 2 mg/ML SDV 2 mL 4 MG IVP (11:17)
[2022-05-01] MEDS: iohexol 350 mg/mL 500 mL Btl (per mL) IV (11:20)
[2022-05-01 11:26] LABS: ABG PCO2 37.5 mmHg (35-45); ABG PH Result 7.53 (7.35-7.45); Alveolar-Arterial Oxygen Gradi 2.2 mmHg (5-10); Arterial Blood Gas Hematocrit 49.6 % (42-52); Base Excess ABG 8.4 mmol/L (-2.0-2.0); Blood Gas Allen Test Pos; Blood Gas Sample Type Arterial; Carboxyhemoglobin 3.2 %THgb (0.4-20.1); HCO3 ABG 31.5 mmol/L (22-26); HGB O2 Sat 94.5 % (95-100); Ionized Calcium Level - ABG 1.1 mmol/L (1.1-1.4); Methemoglobin 0.2 % (0.4-1.5); Oxygen Saturation ABG 97.8; PO2 ABG 83.9 mmHg (80.0-100.0); Potassium Level - ABG 3.1 mmol/L (3.5-5.0); Total Hemoglobin 16.2 g/dL (14-18)
[2022-05-01 11:27] LABS: Blood Gas Sample Site Radial, left
[2022-05-01 12:22] LABS: Glucose Point of Care 506 mg/dL (70-110)
[2022-05-01] MEDS: insulin regular-human 100 units/1 mL 10 UNIT IVP (12:28)
[2022-05-01 12:34] LABS: Reflex Lactate Order REFLEX LACTIC ORDERD
[2022-05-01 13:39] LABS: Glucose Point of Care 256 mg/dL (70-110)
[2022-05-01 14:10] LABS: Troponin(5th) Baseline 15 ng/L (0-15)
[2022-05-01 14:15] LABS: Lactic Acid level (Lactate) 4.1 mmol/L (0.5-2.2)
[2022-05-01 15:04] LABS: Add Urine Microscopic? NO; Charge for UA Resulting for Rev
--- NOTE | 2022-05-01 15:24 | ECG_ITS ---
[facility] Test Date: 2022-05-01 Pat Name: Catarino Echavarria Department: Room: Gender: Male Medical Oncologist: : 1970 Requested By: Yana Lemons Order Number: [id number] Early MD: Alonso Tran M.D. Measurements Intervals [place] Rate: 103 P: 59 SC: 137 QRS: 78 QRSD: 81 T: 51 QT: 329 QTc: 432 Interpretive Statements SINUS TACHYCARDIA SEPTAL MYOCARDIAL INFARCTION , PROBABLY OLD [40+ ms Q WAVE IN V1/V2] Compared to ECG 05/01/2022 10:40:12 Myocardial infarct finding now present ST (T wave) deviation no longer present Electronically Signed On 05-01-2022 17:36:42 MARINE PIPEFITTER by Alonso Tran M.D. [id number]
[2022-05-01 15:29] LABS: Bilirubin Urine Neg (Negative); Blood Urine Neg (Negative); Nitrate Urine Negative (Negative); Protein Urine Neg (Negative); Urine Appearance Clear (CLEAR); Urine Color Dark Yellow (Yellow); pH Urine 6.5 (5-7)
[2022-05-01 15:30] LABS: Glucose Urine UA 4+ (Normal); Ketones Urine 1+ (Negative); Leukocyte Esterase Urine Negative (Negative); Urobilinogen Urine Norm (Negative)
[2022-05-01 15:40] VITALS: BP 116/84; PULSE 105; O2SAT 96
[2022-05-01] MEDS: diphenhydrAMINE 50 mg/mL SDV 1mL 25 MG IVP (15:59)
[2022-05-01 16:00] VITALS: BP 116/84; O2SAT 97
[2022-05-01 16:32] LABS: Troponin 5 2HR 15.02 ng/L (0-15)
[2022-05-01 16:34] LABS: Alanine Aminotransferase 63 U/L (0-41); Albumin Level 3.6 g/dL (3.5-5.2); Alkaline Phosphatase 140 U/L (40-130); Anion Gap 16.4 (5-19); Aspartate Amino Transferase 31 U/L (0-40); Blood Urea Nitrogen 18 mg/dL (6-20); Carbon Dioxide 26 mmol/L (22-29); Chloride 91 mmol/L (98-107); Globulin 2.5 g/dL (1.3-4.6); Glomerular Filtration Rate 140.9 mL/min (90-130); Glucose 323 mg/dL (65-115); Osmolality Calculated 284 mOsm/kg (285-295); Potassium 3.4 mmol/L (3.5-5.1); Sodium 130 mmol/L (136-145); Total Bilirubin 1.2 mg/dL (0.15-1.2); Total Protein 6.1 g/dL (6.6-8.7)
[2022-05-01 16:37] LABS: Troponin 5 2HR Delta 0.02 ABS# (0-10)
[2022-05-01 17:58] VITALS: BP 136/82; PULSE 98; O2SAT 97
[2022-05-01] MEDS: nicotine 14 mg Patch 1 PATCH TRANSDERMA (18:02)
[2022-05-01 18:07] LABS: Glucose Point of Care 285 mg/dL (70-110)
[2022-05-01 18:43] VITALS: BP 136/82; PULSE 98; O2SAT 98
[2022-05-04 23:24] LABS: Beta-Hydroxybutyrate 0.46 mmol/L
== END 2022-05-01 18:44 | disposition home or self-care (01) ==
PROVIDERS: Family Medicine; Nurse Practitioner Family; Emergency Provider Physician Assistant; PCP Family Medicine
DX: E11.65 Type 2 diabetes mellitus with hyperglycemia (principal); R11.11 Vomiting without nausea; Z79.4 Long term (current) use of insulin; F17.210 Nicotine dependence, cigarettes, uncomplicated
CPT/HCPCS: 36415; 36416; 36600; 71046; 74018; 74177; 80051; 80053; 81003; 82009; 82010; 82330; 82805; 82962; 83605; 83690; 83735; 84100; 84484; 85025; 93005; 96361; 96374; 96375; 99285; J1200; J1815; J2405; J7030; Q0162; Q9967

== ENCOUNTER → 2022-06-18 10:13 | Outpatient (BNVA) | payer BC, MEDICAID, SELFPAY | PROVIDERS: PCP Family Medicine; Visit Provider Family Medicine | DX: E11.9 Type 2 diabetes mellitus without complications (principal); Z79.4 Long term (current) use of insulin | CPT/HCPCS: 80053; 83036; 85025 ==

== ENCOUNTER → 2022-09-24 11:14 | Outpatient (BNVA) | payer BC, MEDICAID, SELFPAY | PROVIDERS: PCP Family Medicine; Visit Provider Family Medicine | DX: B19.20 Unspecified viral hepatitis C without hepatic coma (principal); E11.9 Type 2 diabetes mellitus without complications; Z79.4 Long term (current) use of insulin | CPT/HCPCS: 87522 ==

== ENCOUNTER → 2022-12-24 10:35 | Outpatient (BNVA) | payer BC, MEDICAID, SELFPAY | PROVIDERS: PCP Family Medicine; Visit Provider Family Medicine | DX: E11.9 Type 2 diabetes mellitus without complications; Z79.4 Long term (current) use of insulin; B19.20 Unspecified viral hepatitis C without hepatic coma | CPT/HCPCS: 80053; 83036; 85025 ==

== ENCOUNTER 2023-05-29 14:59 | Emergency (ER) | payer BC, MEDICAID, SELFPAY ==
--- NOTE | 2023-05-29 14:27 | ECG_ITS ---
[facility] Test Date: 2023-05-29 Pat Name: Catarino Echavarria Department: Room: Gender: Male Seismograph Observer: : 1970 Requested By: Zack Flynn Order Number: [id number] Early MD: Alonso Tran M.D. Measurements Intervals [place] Rate: 96 P: 73 GA: 143 QRS: 89 QRSD: 80 T: 73 QT: 361 QTc: 457 Interpretive Statements SINUS RHYTHM Compared to ECG 05/01/2022 15:24:15 Sinus tachycardia no longer present Myocardial infarct finding no longer present Electronically Signed On 05-29-2023 16:13:19 CDT by Alonso Tran M.D. [id number]
[2023-05-29 15:00] VITALS: BP 146/95; PULSE 96; TEMP 36.9; O2SAT 99; BMI 24.3
--- NOTE | 2023-05-29 15:03 | XRR_ITS ---
PROCEDURE INFORMATION: Exam: XR Chest Exam date and time: 05/29/2023 3:08 PM Age: 52 years old Clinical indication: Pain; Cough and dyspnea; Other: Abdominal; Prior surgery; Surgery date: 6+ months; Surgery type: Not specified; Patient HX: History of testicular cancer; Additional info: Dyspnea/cough TECHNIQUE: Imaging protocol: Radiologic exam of the chest. Views: 1 view. COMPARISON: CR XR chest 2V* [id number] 05/01/2022 10:39 AM FINDINGS: Lungs: Unremarkable. No consolidation or mass. Pleural spaces: Unremarkable. No pleural effusion. No pneumothorax. Heart/Mediastinum: Unremarkable. No cardiomegaly. Bones/joints: Unremarkable. XR/XR chest 1V portable [id number] IMPRESSION: No acute findings.
--- NOTE | 2023-05-29 15:12 | CTR_ITS ---
PROCEDURE INFORMATION: Exam: CT Abdomen And Pelvis With Contrast Exam date and time: 05/29/2023 3:39 PM Age: 52 years old Clinical indication: Abdominal pain; Localized; Left upper quadrant (luq); Additional info: Abd pain TECHNIQUE: Imaging protocol: Computed tomography of the abdomen and pelvis with contrast. Radiation optimization: All CT scans at this facility use at least one of these dose optimization techniques: automated exposure control; mA and/or kV adjustment per patient size (includes targeted exams where dose is matched to clinical indication); or iterative reconstruction. Contrast material: OMNI 350; Contrast volume: 100 ml; Contrast route: INTRAVENOUS (IV); COMPARISON: CT abdomen pelvis w con* [id number] 05/01/2022 10:56 AM RADIATION DOSE METRICS: Total DLP (mGy-cm): 495.13 FINDINGS: Lungs: Lung bases are clear. No pleural effusion. Liver: Normal. No mass. Gallbladder and bile ducts: Normal. No calcified stones. No ductal dilation. Pancreas: Normal. No ductal dilation. Spleen: Normal. No splenomegaly. Adrenal glands: Normal. No mass. Kidneys and ureters: Normal. No hydronephrosis. Stomach and bowel: Unremarkable. No obstruction. No mucosal thickening. Appendix: No evidence of appendicitis. Intraperitoneal space: Unremarkable. No free air. No significant fluid collection. Vasculature: Unremarkable. No abdominal aortic aneurysm. Lymph nodes: Unremarkable. No enlarged lymph nodes. Urinary bladder: Unremarkable as visualized. Reproductive: Unremarkable as visualized. Bones/joints: Unremarkable. No acute fracture. Soft tissues: Unremarkable. CT/CT abdomen pelvis w con* [id number] IMPRESSION: No acute findings.
[2023-05-29] MEDS: sodium chloride 0.9% 1,000 ML 999 ML IV ×2 (15:28→16:57)
[2023-05-29 15:38] LABS: Basophils % 0.3 %; Hematocrit 43.8 % (37-53); Lymphocytes # 1.6 10^3/uL (0.8-4.8); Lymphocytes % 16.1 %; Mean Corpuscular HGB Conc 36.3 g/dL (30-55); Mean Corpuscular Hemoglobin 28.6 pg (27-33); Mean Corpuscular Volume 78.9 fl (82-101); Mean Platelet Volume 10.4 fL (7.4-10.4); Monocytes # 0.4 10^3/uL (0.2-0.9); Monocytes % 4.3 %; Neutrophils # 8.01 10^3/uL (1.8-7.7); Neutrophils % 78.8 %; Nucleated Red Blood Cells % 0 %; Platelet Count 234 10^3/cmm (157-399); Red Blood Count 5.55 10^6/uL (3.85-5.65); Red Cell Distribution Width 13.3 % (12.1-15.1); White Blood Count 10.17 10^3/uL (3.29-11.43)
[2023-05-29] MEDS: iohexol 350 mg/mL 500 mL Btl (per mL) IV (15:40)
--- NOTE | 2023-05-29 15:49 | W.ED.ABDPA2 ---
HPI - Abdominal Pain General: Chief Complaint: Abdominal Pain Stated Complaint: Abd pain Time Seen by Provider: 05/29/23 15:00 Source: patient Mode of arrival: ambulatory History of Present Illness: 52-year-old male presents emergency room this left upper quadrant pain with vomiting. He had a colonoscopy tells me 2 weeks ago because of concern of blood in the stool. He has had some dark vomitus last couple of days. Does have a history hepatitis C he is a former heavy alcohol drinker but he quit about 20 years ago. He has not had any bowel movements for the last 2 days. He denies any fever sweats chills dysuria urgency or frequency or hematuria. He is diabetic. He does not have any reported history of coronary disease or kidney disease. MD elicited complaint: abdominal pain Onset (ago): day(s) Pain Consistency: constant Location: LUQ Quality: sharp Exacerbating factors: nothing Relieving factors: nothing Associated Symptoms: Reports hematemesis (Patient reports dark-colored emesis) and poor appetite; Denies anorexia, belching, bloating, change in bowel habits, change in stool character, chills, constipation, GI cramping, diarrhea, dyspepsia, dysuria, excessive flatus, fever(s), heartburn, hematochezia, hematuria, fecal incontinence, loose stools, melena (Reports black stools), nausea, syncope and vomiting Review of Systems Const: Denies: fever(s) or chills Card: Denies: syncope Resp: Denies: dyspnea GI: Reports: hematemesis (Patient reports dark-colored emesis); Denies: nausea, vomiting, heartburn, diarrhea, constipation, bloating, GI cramping, belching, excessive flatus, fecal incontinence, change in bowel habits, change in stool character, hematochezia or melena (Reports black stools) : Denies: dysuria or hematuria Musc: Denies: neck pain or back pain Skin/Breast: Denies: rash PFSH ED PFSH: Medical History IV site infection Testicular cancer Abscess of left elbow Acute pharyngitis Surgical History Hx of knee surgery Social History (Reviewed 05/29/23 @ 15:52 by MIGUEL Finley Smoking and tobacco/nicotine status: current every day tobacco/nicotine user cigarettes Alcohol intake: never Substance/Drug Use: former Lives independently: Yes Physical Exam Const: GENERAL APPEARANCE: cooperative and comfortable ORIENTATION/CONSCIOUSNESS: Yes awake, Yes oriented to person, Yes oriented to place and Yes oriented to time HENMT: COMMON NORMALS: normocephalic, atraumatic and hearing grossly normal bilaterally HEAD & SCALP: normocephalic and atraumatic Resp: COMMON NORMALS: normal respiratory effort, No retractions, No use of accessory muscles and clear to auscultation bilaterally AUSCULTATION: clear to auscultation bilaterally Cardio: COMMON NORMALS: regular rate, regular rhythm and No murmurs present (Cardio) RATE: regular rate RHYTHM: regular rhythm GI: COMMON NORMALS: No hepatosplenomegaly present AUSCULTATION: Yes normoactive bowel sounds PALPATION: Yes Tenderness to palpation present (GI) (Epigastric), No Guarding due to palpation present (GI) and Yes No hepatosplenomegaly present RECTAL EXAM: Yes visual inspection normal, Yes normal sphincter tone, Yes heme negative stool, No hemorrhoids and No tenderness : COMMON NORMALS: Yes no CVA tenderness BLADDER/KIDNEY EXAM: Yes no CVA tenderness Back/Pelvis: COMMON NORMALS: no CVA tenderness Extremity: COMMON NORMALS: normal to inspection, capillary refill normal, no clubbing, cyanosis or edema, no calf tenderness and no pedal edema Neuro: SENSORIUM/ORIENTATION: Yes oriented to person, Yes oriented to place and Yes oriented to time Skin: COMMON NORMALS: no rashes or lesions noted GENERAL SKIN EXAM: no rashes or lesions noted Course Vital Signs: Vital signs: Vital Signs Temperature 98.4 F 05/29/23 15:00 Pulse Rate 90 05/29/23 18:34 Respiratory Rate 15 05/29/23 18:34 Blood Pressure 146/95 05/29/23 15:00 Pulse Oximetry 98 05/29/23 18:34 Oxygen Delivery Me thod Room Air 05/29/23 15:00 MDM - Abdominal Pain Medical Decision Making Patient has reports of epigastric abdominal pain. CT does not show any acute abnormalities no leukocytosis. Patient reports being a former drinker but stopped drinking [address] did not show any inflammation or dilatation of the bile ducts or the pancreas. Transaminases and alk phos are elevated in the same range that he had before and some category slightly less. Repeat abdominal exam is benign. Patient has not had any vomiting since he arrived. Rectal exam done at showed negative Hemoccults. No hematuria no ketones. Repeat Accu-Chek is blood sugar after fluids is down to 286. Reviewing his old chart his blood sugars generally do run near 300 or above frequently. He was given insulin prior to discharge. He does have a history of hepatitis C. Urine did not show any hematuria he did not have any pain associated with the flanks or pain associated with urination. Recommend he start on Protonix 40 mg twice a day so Carafate as needed. There is no sign of active bleeding on the CT and his hemoglobin is stable his BUN is normal. He did have some anion gap but believes that was from his vomiting and he seems to be improved after 2 L of fluid. Discharge patient home and have him follow-up with his primary care doctor. Medical Records I reviewed the patient's medical records. Lab Data I reviewed the patient's lab results. 05/29/23 15:10 05/29/23 15:10 Labs/Radiology: Radiology Impressions Chest X-Ray 05/29/23 15:03 IMPRESSION: No acute findings. Abdomen/Pelvis CT 05/29/23 15:12 IMPRESSION: No acute findings. Laboratory Results WBC 10.17 10^3/uL (3.29-11.43) 05/29/23 15:10 RBC 5.55 10^6/uL (3.85-5.65) 05/29/23 15:10 Hgb 15.90 g/dL (11.27-16.99) 05/29/23 15:10 Hct 43.8 % (37-53) 05/29/23 15:10 MCV 78.9 fl (82-101) L 05/29/23 15:10 MCH 28.6 pg (27-33) 05/29/23 15:10 MCHC 36.3 g/dL (30-55) 05/29/23 15:10 RDW 13.3 % (12.1-15.1) 05/29/23 15:10 Plt Count 234 10^3/cmm (157-399) 05/29/23 15:10 MPV 10.4 fL (7.4-10.4) 05/29/23 15:10 Neut % (Auto) 78.8 % 05/29/23 15:10 Lymph % (Auto) 16.1 % 05/29/23 15:10 [place] % (Auto) 4.3 % 05/29/23 15:10 Eos % (Auto) 0.0 % 05/29/23 15:10 Baso % (Auto) 0.3 % 05/29/23 15:10 Neut # (Auto) 8.01 10^3/uL (1.8-7.7) H 05/29/23 15:10 Lymph # (Auto) 1.6 10^3/uL (0.8-4.8) 05/29/23 15:10 [place] # (Auto) 0.4 10^3/uL (0.2-0.9) 05/29/23 15:10 Eos # (Auto) 0.0 10^3/uL (0.0-0.8) 05/29/23 15:10 Baso # (Auto) 0.0 10^3/uL (0.0-0.1) 05/29/23 15:10 Nucleated RBC % (auto) 0 % 05/29/23 15:10 Nucleated RBCs # 0.0 /100WBC 05/29/23 15:10 PT 13.50 SECONDS (12.1-14.9) 05/29/23 15:10 INR 1.00 (0.8-1.2) 05/29/23 15:10 APTT 26.2 SECONDS (23.9-36.7) 05/29/23 15:10 Sodium 131 mmol/L (136-145) L 05/29/23 15:10 Potassium 3.6 mmol/L (3.5-5.1) 05/29/23 15:10 Chloride 91 mmol/L (98-107) L 05/29/23 15:10 Carbon Dioxide 21 mmol/L (22-29) L 05/29/23 15:10 Anion Gap 22.6 (5-19) H 05/29/23 15:10 BUN 11 mg/dL (6-20) 05/29/23 15:10 Creatinine 0.8 mg/dL (0.7-1.2) 05/29/23 15:10 GFR Calculation 100.7 mL/min (90-130) 05/29/23 15:10 Glucose 375 mg/dL (65-115) H 05/29/23 15:10 POC Glucose 286 mg/dL (70-110) H 05/29/23 18:16 Calculated Osmolality 287 mOsm/kg (285-295) 05/29/23 15:10 Calcium 9.5 mg/dL (8.5-10.5) 05/29/23 15:10 Total Bilirubin 0.7 mg/dL (0.15-1.2) 05/29/23 15:10 AST 54 U/L (0-40) H 05/29/23 15:10 ALT 77 U/L (0-41) H 05/29/23 15:10 Alkaline Phosphatase 193 U/L (40-130) H 05/29/23 15:10 Total Protein 8.1 g/dL (6.6-8.7) 05/29/23 15:10 Albumin 4.1 g/dL (3.5-5.2) 05/29/23 15:10 Globulin 4.0 g/dL (1.3-4.6) 05/29/23 15:10 Urine Color Yellow (Yellow) 05/29/23 17:42 Urine Appearance Clear (CLEAR) 05/29/23 17:42 Urine pH 9 (5-7) H 05/29/23 17:42 Ur Specific [place] 1.010 (1.005-1.030) 05/29/23 17:42 Urine Protein Neg (Negative) 05/29/23 17:42 Urine Glucose (UA) 4+ (Normal) H 05/29/23 17:42 Urine Ketones 2+ (Negative) H 05/29/23 17:42 Urine Blood Neg (Negative) 05/29/23 17:42 Urine Nitrate Negative (Negative) 05/29/23 17:42 Urine Bilirubin Neg (Negative) 05/29/23 17:42 Prot Sulfosalicylic Acd Negative (Negative) 05/29/23 17:42 Urine Urobilinogen Norm mg/dL (Negative) 05/29/23 17:42 Ur Leukocyte Esterase Negative (Negative) 05/29/23 17:42 Serum Ketones Negative (Negative) 05/29/23 15:10 All radiology interpretation(s) finalized by discharge Discharge Plan Discharge Patient Disposition: Home Clinical Impression: GERD (gastroesophageal reflux disease), Diabetes mellitus type 2, uncontrolled, with complications Hepatitis C infection Qualifiers: Viral hepatitis chronicity: chronic Hepatic coma status: without hepatic coma Qualified Code(s): B18.2 - Chronic viral hepatitis C Condition: Stable Prescriptions: New Protonix 40 mg tablet,delayed release (DR/EC) 40 mg PO BID 40 Days Qty: 80 0RF promethazine 25 mg tablet 25 mg PO Q6H PRN (Reason: nausea and vomiting) Qty: 20 0RF Carafate 1 gram tablet 1 g PO Q6H 28 Days Qty: 112 0RF Discontinued calcium carbonate [Tums] 200 mg calcium (500 mg) Tablet,Chewable 200 - 600 mg PO TID PRN (Reason: Acid Reflux) No Action Miralax 17 gram/dose powder 17 g PO DAILY buspirone 5 mg tablet 5 mg PO BID PRN (Reason: anxiety) Qty: 60 2RF (DME) OneTouch Ultra Test Strip See Rx Instructions .ROUTE .COMPLEX Qty: 100 2RF Dose Instruction: USE DIRECTED Rx Instructions: USE DIRECTED insulin aspart U-100 100 unit/mL (3 mL) insulin pen See Rx Instructions .ROUTE .COMPLEX Rx Instructions: subcutaneously PER SLIDING SCALE duloxetine 30 mg capsule,delayed release(DR/EC) 30 mg PO DAILY varenicline 1 mg tablet 1 mg PO BID Lantus Solostar U-100 Insulin 100 unit/mL (3 mL) insulin pen 60 unit SUBCUT BID Discharge Orders: Discharge ED (Routine); Ordered 05/29/23 Ordered By: Zack Garcia Referrals: Harman Marcus DO [Primary Care Provider] - Patient Instructions: Diet for Stomach Ulcers and Gastritis (ED), Opioid Safety, Pain Management Activity Restrictions/Additional Instructions: Thank you for choosing [facility] for your healthcare needs today. Please realize this is an emergency room and that we are providing you with a medical screening exam and this may not be complete and all inclusive of all the testing and or work up that you may need to determine your ailment or severity of your illness. It is very important that you follow up as instructed or that you return to the Emergency Department should you have concerns or if your condition changes or worsens in any way. You were seen today for stomach pain. The CT of your abdomen did not show any acute or emergent conditions. Blood work showed a normal hemoglobin and other lab work showed no signs of active bleeding in the stomach. A rectal exam done in the emergency room did not show blood in the stool. Recommend that you start Protonix 40 mg twice a day use Carafate as needed for stomach upset you can use promethazine for nausea and vomiting and follow a bland diet such as the 1 given to you at the time of discharge. If you have persistent symptoms follow-up with your primary care doctor they can evaluate whether or not you should have an EGD (endoscopy of the stomach). Coding Level of Care Code ED Retouching Operator for Mimi Brown
[2023-05-29 16:02] LABS: Alanine Aminotransferase 77 U/L (0-41); Albumin Level 4.1 g/dL (3.5-5.2); Alkaline Phosphatase 193 U/L (40-130); Anion Gap 22.6 (5-19); Aspartate Amino Transferase 54 U/L (0-40); Blood Urea Nitrogen 11 mg/dL (6-20); Calcium 9.5 mg/dL (8.5-10.5); Carbon Dioxide 21 mmol/L (22-29); Chloride 91 mmol/L (98-107); Creatinine Clr Calc Pharmacy 111.4482; Glomerular Filtration Rate 100.7 mL/min (90-130); Glucose 375 mg/dL (65-115); Osmolality Calculated 287 mOsm/kg (285-295); Potassium 3.6 mmol/L (3.5-5.1); Sodium 131 mmol/L (136-145); Total Bilirubin 0.7 mg/dL (0.15-1.2); Total Protein 8.1 g/dL (6.6-8.7)
[2023-05-29 16:07] LABS: Ketone (Acetest) Serum Negative (Negative)
[2023-05-29] MEDS: lidocaine 2% viscous 15 ML, aluminum-mag hydrox-simethicon 30 ML, sucralfate oral liq 1 GM PO (16:07)
[2023-05-29 16:11] LABS: Partial Thromboplastin Time 26.2 SECONDS (23.9-36.7)
--- NOTE | 2023-05-29 16:57 | PC.NURSE ---
pt vomited after attempting first GI cocktail, Dr. Garcia aware, per Dr. Garcia verbal orders to try another GI cocktail
--- NOTE | 2023-05-29 16:58 | PC.NURSE ---
pt very agitated and being very rude with staff. pt cussing at sitter and this nurse and stating we are doing the same treatment he received a year ago for the same symptoms. pt slamming urinal down, throwing hands around. this nurse has attempted verbal deescalation x2 times. successful each time, but pt continues to get agitated.
[2023-05-29 17:08] VITALS: RESP 25; O2SAT 98
[2023-05-29] MEDS: morphine 4 mg/mL SDV 1 mL 2 MG IVP (17:08)
[2023-05-29] MEDS: ondansetron 2 mg/ML SDV 2 mL 4 MG IVP (17:08)
--- NOTE | 2023-05-29 17:09 | PC.NURSE ---
pt raised voice at nurse and states are you giving me fucking pain meds, if not you can sign me out . pt throwing hands around, slamming items on bed. pt cussing at this nurse. charge nurse at bedside at this point. charge nurse attempted verbal deescalation and pt states A year ago I grew a third nut, and then the doctors had to remove on nut and it's not my prized jewel. Think about how that makes me feel. I am this way because of this doctors. They told me I have two years at best. pt immediately calmed down and states I am a little high strung after this nurse informed patient of Morphine IVP order. pt now calm and cooperative.
[2023-05-29 17:39] VITALS: PULSE 90; RESP 15; O2SAT 98
[2023-05-29 17:44] LABS: Add Urine Microscopic? NO; Charge for UA Resulting for Rev
[2023-05-29 17:55] LABS: Urine Appearance Clear (CLEAR); Urine Color Yellow (Yellow)
[2023-05-29 17:57] LABS: Bilirubin Urine Neg (Negative); Blood Urine Neg (Negative); Glucose Urine UA 4+ (Normal); Ketones Urine 2+ (Negative); Leukocyte Esterase Urine Negative (Negative); Nitrate Urine Negative (Negative); Protein Urine Neg (Negative); Sulfosalicylic Acid Urine Negative (Negative); Urobilinogen Urine Norm (Negative); pH Urine 9 (5-7)
[2023-05-29 18:32] LABS: Glucose Point of Care 286 mg/dL (70-110)
[2023-05-29 18:34] VITALS: PULSE 90; RESP 15; O2SAT 98
[2023-05-29] MEDS: sucralfate 1 gm/10 mL Oral Liq UDC PO (18:34)
== END 2023-05-29 18:35 | disposition home or self-care (01) ==
PROVIDERS: Emergency Provider Family Medicine; PCP Family Medicine
DX: K21.9 Gastro-esophageal reflux disease without esophagitis (principal); E11.8 Type 2 diabetes mellitus with unspecified complications; B18.2 Chronic viral hepatitis C; Z79.4 Long term (current) use of insulin; Z85.47 Personal history of malignant neoplasm of testis; F17.210 Nicotine dependence, cigarettes, uncomplicated
CPT/HCPCS: 36416; 71045; 74177; 80053; 81003; 82009; 82962; 85025; 85610; 85730; 93005; 96361; 96374; 96375; 99285; J2270; J2405; J7030; Q9967

== ENCOUNTER 2024-06-04 10:19 | Emergency (ER) | payer MEDICARE, MEDICAID, SELFPAY ==
[2024-06-04 10:43] VITALS: BP 126/83; PULSE 111; RESP 18; TEMP 36.9; O2SAT 98; BMI 25.8
--- NOTE | 2024-06-04 10:56 | W.ED.SKABFB ---
HPI - Skin/Abscess/Foreign Bdy General: Chief complaint: Skin/Abscess/Foreign Body Stated complaint: swelled lips Time Seen by Provider: 06/04/24 10:42 History of Present Illness: 53-year-old male presents with upper lip swelling. He reports that started after he had an ingrown hair and was messing with it. He had mild drainage when he tried to pop it. Very tender and swollen. He has some antibiotics at home they start taking but he is not exactly sure what they are and how old they are. Associated symptoms: Deny chills, fever(s), nausea or vomiting Related Data Home Medications ?Medication ?Instructions ?Recorded ?Confirmed polyethylene glycol 3350 17 17 g PO DAILY 12/24/22 05/29/23 gram/dose oral powder (Miralax) duloxetine 30 mg capsule,delayed 30 mg PO DAILY 05/29/23 05/29/23 release insulin aspart U-100 100 unit/mL See Rx Instructions .Route .COMPLEX 05/29/23 05/29/23 (3 mL) subcutaneous pen insulin glargine 100 unit/mL (3 60 unit SUBCUT BID 05/29/23 05/29/23 mL) subcutaneous pen (Lantus Solostar U-100 Insulin) varenicline tartrate 1 mg tablet 1 mg PO BID 05/29/23 05/29/23 Previous Rx's ?Medication ?Instructions ?Recorded buspirone 5 mg tablet 5 mg PO BID PRN anxiety #60 tabs 04/23/22 blood sugar diagnostic (OneTouch #100 strips 10/22/22 Ultra Test strips) promethazine 25 mg tablet 25 mg PO Q6H PRN nausea and 05/29/23 vomiting #20 tabs sulfamethoxazole 800 1 tab PO BID 10 days #20 tabs 06/04/24 mg-trimethoprim 160 mg tablet (Bactrim DS) Allergies Allergy/AdvReac Type Severity Reaction Status Date / Time No Known Allergies Allergy Verified 05/29/23 15:09 Review of Systems Const: Denies: fever(s) or chills ENMT: Reports: other (Upper lip swelling) Card: Denies: chest pain or palpitations Resp: Denies: dyspnea, productive cough or non-productive cough GI: Denies: abdominal pain, nausea or vomiting Skin/Breast: Reports: other (Upper lip swelling) PFSH ED PFSH: Medical History IV site infection Testicular cancer Abscess of left elbow Acute pharyngitis Surgical History Hx of knee surgery Social History Smoking and tobacco/nicotine status: current every day tobacco/nicotine user cigarettes Alcohol intake: never Substance/Drug Use: former Lives independently: Yes Physical Exam Const: COMMON NORMALS: patient oriented x3 HENMT: MOUTH: lip abnormal (Swelling left upper lip with superficial abscess, consistent with celluliti) Resp: COMMON NORMALS: normal respiratory effort, No retractions and No use of accessory muscles Cardio: COMMON NORMALS: regular rate and regular rhythm RATE: regular rate RHYTHM: regular rhythm Extremity: COMMON NORMALS: normal to inspection and capillary refill normal Neuro: COMMON NORMALS: patient oriented x3, CN's II-XII intact bilaterally and moves all extremities Psych: COMMON NORMALS: Normal thought process present and cooperative THOUGHT PROCESS: Normal thought process present Skin: NARRATIVE SKIN EXAM: Cellulitis upper lip Course Vital Signs: Vital signs: Vital Signs Temperature 98.5 F 06/04/24 10:43 Pulse Rate 111 H 06/04/24 10:43 Respiratory Rate 18 06/04/24 10:43 Blood Pressure 126/83 06/04/24 10:43 Pulse Oximetry 98 06/04/24 10:43 Oxygen Delivery Me thod Room Air 06/04/24 10:43 MDM - Skin/Abscess/Foreign Bdy Medicial Decision Making Patient with cellulitis left upper lip with no significant drainable abscess. He will be started on Bactrim. Recommend he monitor it for abscess formation follow-up with a primary care provider in a couple days. He is stable and discharged home. No radiology studies performed this visit Discharge Plan Discharge Patient Disposition: Home Clinical Impression: Cellulitis of lip Condition: Stable Prescriptions: New sulfamethoxazole-trimethoprim [Bactrim DS] 800-160 mg tablet 1 tab PO BID 10 Days Qty: 20 0RF No Action Miralax 17 gram/dose powder 17 g PO DAILY buspirone 5 mg tablet 5 mg PO BID PRN (Reason: anxiety) Qty: 60 2RF (DME) OneTouch Ultra Test Strip See Rx Instructions .ROUTE .COMPLEX Qty: 100 2RF Dose Instruction: USE DIRECTED Rx Instructions: USE DIRECTED insulin aspart U-100 100 unit/mL (3 mL) insulin pen See Rx Instructions .ROUTE .COMPLEX Rx Instructions: subcutaneously PER SLIDING SCALE duloxetine 30 mg capsule,delayed release(DR/EC) 30 mg PO DAILY varenicline tartrate 1 mg tablet 1 mg PO BID Lantus Solostar U-100 Insulin 100 unit/mL (3 mL) insulin pen 60 unit SUBCUT BID promethazine 25 mg tablet 25 mg PO Q6H PRN (Reason: nausea and vomiting) Qty: 20 0RF Discharge Orders: Discharge ED (Routine); Ordered 06/04/24 Ordered By: Gustavo Jacobs Referrals: Harman Marcus DO [Primary Care Provider] - Discharge Diet: Usual diet Discharge Activity: Resume usual activity Patient Instructions: Cellulitis (ED), Opioid Safety, Pain Management Activity Restrictions/Additional Instructions: Please take antibiotics as prescribed. Please follow-up with your primary care provider in a couple days for recheck of your symptoms. Warm compress 2-3 times daily. Tylenol or ibuprofen for discomfort. You may also use dental Orajel or similar medication for discomfort. Print Language: Georgian Coding Level of Care Code ED Leather Patcher for Mimi Brown
[2024-06-04 11:00] VITALS: BP 126/83; O2SAT 96
[2024-06-04 11:07] VITALS: BP 126/83; PULSE 91; RESP 18; O2SAT 97
== END 2024-06-04 11:08 | disposition home or self-care (01) ==
PROVIDERS: Emergency Provider Student in an Organized Health Care Education/Training Program; PCP Family Medicine
DX: K13.0 Diseases of lips (principal); F17.210 Nicotine dependence, cigarettes, uncomplicated
CPT/HCPCS: 99283

== ENCOUNTER 2024-08-07 12:43 | Emergency (ER) | payer MEDICARE, MEDICAID, SELFPAY ==
[2024-08-07 12:48] VITALS: BP 142/95; PULSE 102; RESP 18; TEMP 37; O2SAT 97; BMI 25.9
--- NOTE | 2024-08-07 12:58 | W.ED.SKABFB ---
HPI - Skin/Abscess/Foreign Bdy General: Chief complaint: Skin/Abscess/Foreign Body Stated complaint: facial swelling Time Seen by Provider: 08/07/24 12:51 History of Present Illness: 53-year-old man who presents emergency room with multiple facial abscesses. He has 1 on his upper lip just below his nose that has been present for some time now that is mostly improved but he feels like it might be swelling up a little bit again. And he has 1 on his right mandible. He says he just drained a copious amount of pus out of it. He says he was prescribed Bactrim 1 pill twice a day for 5 days and it is not helping. Apparently he is only taken his first dose. I discussed with him that I am going to increase his Bactrim dosing for skin infections. I offered to drain the abscess but he says he drained it and he does not want an I&D. No fevers. No altered mental status. No chest pain. Related Data Home Medications ?Medication ?Instructions ?Recorded ?Confirmed polyethylene glycol 3350 17 17 g PO DAILY 12/24/22 05/29/23 gram/dose oral powder (Miralax) duloxetine 30 mg capsule,delayed 30 mg PO DAILY 05/29/23 05/29/23 release insulin aspart U-100 100 unit/mL See Rx Instructions .Route .COMPLEX 05/29/23 05/29/23 (3 mL) subcutaneous pen insulin glargine 100 unit/mL (3 60 unit SUBCUT BID 05/29/23 05/29/23 mL) subcutaneous pen (Lantus Solostar U-100 Insulin) varenicline tartrate 1 mg tablet 1 mg PO BID 05/29/23 05/29/23 Previous Rx's ?Medication ?Instructions ?Recorded buspirone 5 mg tablet 5 mg PO BID PRN anxiety #60 tabs 04/23/22 blood sugar diagnostic (Churn LabsTouch #100 strips 10/22/22 Ultra Test strips) promethazine 25 mg tablet 25 mg PO Q6H PRN nausea and 05/29/23 vomiting #20 tabs mupirocin 2 % topical ointment 1 applic topical TID 10 days #22 08/07/24 grams sulfamethoxazole 800 2 tab PO BID 10 days #40 tabs 08/07/24 mg-trimethoprim 160 mg tablet (Bactrim DS) Allergies Allergy/AdvReac Type Severity Reaction Status Date / Time No Known Allergies Allergy Verified 05/29/23 15:09 Review of Systems Narrative: Constitutional symptoms: Negative except as documented in HPI. Skin symptoms: Negative except as documented in HPI. Eye symptoms: Negative except as documented in HPI. ENMT symptoms: Negative except as documented in HPI. Respiratory symptoms: Negative except as documented in HPI. Cardiovascular symptoms: Negative except as documented in HPI. Gastrointestinal symptoms: Negative except as documented in HPI. Genitourinary symptoms: Negative except as documented in HPI. Musculoskeletal symptoms: Negative except as documented in HPI. Neurologic symptoms: Negative except as documented in HPI. Psychiatric symptoms: Negative except as documented in HPI. Endocrine symptoms: Negative except as documented in HPI. PFSH ED PFSH: Medical History IV site infection Testicular cancer Abscess of left elbow Acute pharyngitis Surgical History Hx of knee surgery Social History Smoking and tobacco/nicotine status: current every day tobacco/nicotine user cigarettes Alcohol intake: never Substance/Drug Use: former Lives independently: Yes Physical Exam Narrative: EXAM NARRATIVE: General: Alert, no acute distress. Skin: warm and dry. Swollen area on the right posterior mandible with an open area. There is redness and warmth. Head: Normocephalic Neck: Trachea midline Eye: Extraocular movements are intact. Ears, nose, mouth and throat: Oral mucosa moist Respiratory: Respirations are non-labored Musculoskeletal: Normal ROM Gastrointestinal: Abdomen does not appear distended Neurological: Alert and oriented, No focal neurological deficit observed. Psychiatric: Cooperative, appropriate mood & affect. Course Vital Signs: Vital signs: Vital Signs Temperature 98.6 F 08/07/24 12:48 Pulse Rate 102 H 08/07/24 12:48 Respiratory Rate 18 08/07/24 12:48 Blood Pressure 142/95 08/07/24 12:48 Pulse Oximetry 97 08/07/24 12:48 Oxygen Delivery Me thod Room Air 08/07/24 12:48 MDM - Skin/Abscess/Foreign Bdy Medicial Decision Making Assessment and plan: Facial abscess ? IV vancomycin and cefepime in the emergency room. Increasing Bactrim to 2 tabs twice a day. Advised he come back for an I&D if swelling worsens - Discharged home - Discussed plan with patient. Answered any questions. - Evaluation and treatment of this problem were appropriate in the emergency setting. No radiology studies performed this visit Discharge Plan Discharge Patient Disposition: Home Clinical Impression: Facial abscess Condition: Stable Prescriptions: New sulfamethoxazole-trimethoprim [Bactrim DS] 800-160 mg tablet 2 tab PO BID 10 Days Qty: 40 0RF mupirocin 2 % ointment 1 applic topical TID 10 Days Qty: 22 1RF No Action Miralax 17 gram/dose powder 17 g PO DAILY buspirone 5 mg tablet 5 mg PO BID PRN (Reason: anxiety) Qty: 60 2RF (DME) OneTouch Ultra Test Strip See Rx Instructions .ROUTE .COMPLEX Qty: 100 2RF Dose Instruction: USE DIRECTED Rx Instructions: USE DIRECTED insulin aspart U-100 100 unit/mL (3 mL) insulin pen See Rx Instructions .ROUTE .COMPLEX Rx Instructions: subcutaneously PER SLIDING SCALE duloxetine 30 mg capsule,delayed release(DR/EC) 30 mg PO DAILY varenicline tartrate 1 mg tablet 1 mg PO BID Lantus Solostar U-100 Insulin 100 unit/mL (3 mL) insulin pen 60 unit SUBCUT BID promethazine 25 mg tablet 25 mg PO Q6H PRN (Reason: nausea and vomiting) Qty: 20 0RF Discharge Orders: Discharge ED (Routine); Ordered 08/07/24 Ordered By: Kamla Desai Referrals: Harman Marcus DO [Primary Care Provider, Family Practice] Discharge Diet: Usual diet Discharge Activity: Increase activity as tolerated Patient Instructions: Abscess (ED), Abscess Follow-up (ED), Opioid Safety, Pain Management Activity Restrictions/Additional Instructions: If swelling worsens please return to the emergency room for incision and drainage of the abscess. Thank you for choosing [facility] for your healthcare needs today. You have been screened and evaluated and felt safe for discharge. Health conditions do change or evolve sometimes and as such it is important that you follow up with your Primary Doctor to be re checked, 3-5 days is a general good time frame for follow up. You are always welcome to return to the ED for re assessment if your symptoms are worsening or you have new concerns Print Language: Micronesian Coding Level of Care Code ED Passementerie Worker for Mimi Brown
[2024-08-07] MEDS: cefepime 2,000 mg SDV 2000 MG IVP (13:09)
[2024-08-07 13:11] VITALS: PULSE 86; O2SAT 95
[2024-08-07] MEDS: vancomycin 2,000 MG/400 ML PIGGYBACK 200 MG IV (13:14)
[2024-08-07] MEDS: diphenhydrAMINE 50 mg/mL SDV 1mL 25 MG IVP (14:27)
--- NOTE | 2024-08-07 14:31 | PC.NURSE ---
pt c/o severe itching to scalp, Selam GARSIA stopped infusion and got this nurse, this nurse checked pt, no sob, no chest pain, pt states My head fucking itches all of a sudden This nurse relayed information to Dr. Desai, meds ordered and Dr. Desai states to infuse ABT Vancomycin slower. Pt updated. Meds given per orders, pt states during administration of Benadryl that the itching stopped. Will continue to monitor.
[2024-08-07 15:00] VITALS: PULSE 69; O2SAT 98
[2024-08-07] MEDS: HYDROcodone-acetaminophen 10-325 mg Tablet 1 TAB PO (15:45)
[2024-08-07] MEDS: lidocaine-epi 1% 20 mL INJ INJECTION (15:59)
--- NOTE | 2024-08-07 16:07 | CTR_ITS ---
PROCEDURE INFORMATION: Exam: CT Maxillofacial With Contrast Exam date and time: 08/07/2024 4:29 PM Age: 53 years old Clinical indication: Face pain; Additional info: Nose infection, jaw abscess TECHNIQUE: Imaging protocol: Computed tomography of the face with contrast. Radiation optimization: All CT scans at this facility use at least one of these dose optimization techniques: automated exposure control; mA and/or kV adjustment per patient size (includes targeted exams where dose is matched to clinical indication); or iterative reconstruction. Contrast material: [id number]; Contrast volume: 100 ml; Contrast route: INTRAVENOUS (IV); COMPARISON: No relevant prior studies available. RADIATION DOSE METRICS: Total DLP (mGy-cm): 681.38 FINDINGS: Paranasal sinuses: No air-fluid levels. Orbital cavities: Orbits are normal. Globes are unremarkable. Teeth: Poor dentition with absence of multiple maxillary and mandibular teeth, as well as numerous dental caries. Lymph nodes: Several enlarged right level Ib and IIa lymph nodes are seen. Dominant right submandibular lymph node measures 2.0 x 1.2 cm in axial dimensions. Dominant right level II lymph node measures 1.8 x 1.5 cm. Prominent left level Ib lymph node measures 1.3 x 0.9 cm. Bones: No acute fracture. Soft tissues: Ill-defined complex collection in the subcutaneous soft tissues of the right lower face with packing material in place. The collection measures about 3.0 x 1.4 x 2.7 cm with fat stranding/induration extending into the adjacent subcutaneous soft tissues. This collection extends to the level of the platysma muscle. Small complex fluid collection on the undersurface of the nose extending along the philtrum measures about 0.9 x 1.5 x 1.1 cm with induration extending into the adjacent soft tissues, including along the upper lip. CT/CT facial bones w con [id number] IMPRESSION: 1. Complex collection in the subcutaneous soft tissues of the right lower face with packing material in place, compatible with abscess. Surrounding edema/induration extending into adjacent soft tissues. 2. Small abscess along the undersurface of the nose extending along the philtrum into the upper lip. 3. Enlarged right cervical lymph nodes and prominent left cervical lymph nodes are favored to be reactive. Consider follow-up ultrasound or CT within 4-6 weeks to evaluate for improvement.
[2024-08-07 17:00] VITALS: BP 146/93; PULSE 86; O2SAT 99
--- NOTE | 2024-08-07 17:17 | PC.NURSE ---
This nurse informed pt that Dr. Desai said nothing to drink until results of CT, pt states Well I got myself a fucking drink from the sink cause I thirsty, I'm tired of waiting, I'm tired of being here Pt then states that he was told his CT scan would be back in 30 minutes when another nurse told him an hour. pt states I don't know what the fuck is going on around here and no one else seems to either. Pt informed Dr. Desai would be in when CT was back. PT up and pacing the room. call light on bed.
--- NOTE | 2024-08-09 12:24 | PC.NURSE ---
LAB CALLED WITH A POSITIVE WOUND CULTURE OF MRSA. PT WAS SENT HOME ON BACTRIM. DR. HURLEY NOTIFIED OF POSITIVE WOUND CULTURES. NO NEW ORDERS AT THIS TIME.
== END 2024-08-07 17:40 | disposition home or self-care (01) ==
PROVIDERS: Emergency Provider Emergency Medicine; PCP Family Medicine
DX: L02.01 Cutaneous abscess of face (principal); F17.210 Nicotine dependence, cigarettes, uncomplicated; Z79.4 Long term (current) use of insulin
CPT/HCPCS: 10060; 70487; 87070; 87075; 87077; 87186; 87205; 96365; 96366; 96374; 96375; 99285; J0692; J1200; J3372; J9999

== ENCOUNTER 2024-11-23 09:22 | Outpatient (CLI) | payer MEDICARE, MEDICAID, SELFPAY ==
[2024-11-24 22:45] LABS: Amphetamines Level NEGATIVE ng/mL (<500)
== END 2024-11-23 09:23 | disposition home or self-care (01) ==
PROVIDERS: PCP Family Medicine; Visit Provider Emergency Medicine
DX: G89.29 Other chronic pain (principal)
CPT/HCPCS: 80307